=== PATIENT | female | born 1980 | race Caucasian/White ===

== ENCOUNTER 2016-12-06 19:30 | Emergency (ER) | payer OTHER ==
[~2016-12-06] VITALS: Ht 165.1 cm; Wt 86.7 kg
[~2016-12-06 19:30] MED LIST: ASPI-157 PO; CLON1TAB PO; PERC7.5T13 PO; PROM25TA5 PO; VENTAER INH
[2016-12-06 19:44] VITALS: BP 114/79; PULSE 89; RESP 18; TEMP 98.7; O2SAT 97
[2016-12-06 19:57] VITALS: BP 114/79; PULSE 89; RESP 18; TEMP 98.7; O2SAT 97
[2016-12-06] MEDS ORDERED: SODIUM CHLOR 0.9% 1000 ML INJ 1,000 ML IV ONE (20:09)
[2016-12-06] MEDS ORDERED: METOCLOPRAMIDE HCL 10 MG/2 ML VIAL IVP ONE (20:15)
[2016-12-06] MEDS ORDERED: SODIUM CHLORIDE 0.9% FLUSH 5 ML FLUSH IVF PRN (20:15)
[2016-12-06] MEDS ORDERED: diphenhydrAMINE HCL 50 MG/ML VIAL IVP ONE (20:15)
[2016-12-06 20:38] VITALS: RESP 18; O2SAT 97
[2016-12-06 21:06] VITALS: BP 109/68; PULSE 71; RESP 18; O2SAT 97
--- NOTE | 2016-12-06 21:23 | RADHPO ---
EXAM DATE/TIME: 12/06/2016 20:49 [place] COMPARISON: CT BRAIN W/O CONTRAST, November 26, 2016, 23:02. INDICATIONS : Headache and photophobia for two days. RADIATION DOSE: 63.13 CTDIvol (mGy) MEDICAL HISTORY : None SURGICAL HISTORY : Hysterectomy. ENCOUNTER: Initial ACUITY: 2 days PAIN SCALE: 8/10 LOCATION: cranial TECHNIQUE: Multiple contiguous axial images were obtained of the head. Using automated exposure control and adj ustment of the mA and/or kV according to patient size, radiation dose was kept as low as reasonably a chievable to obtain optimal diagnostic quality images. FINDINGS: CEREBRUM: The ventricles are normal for age. Cavum septum pellucidum is again noted. No evidence of midline sh ift, mass lesion, hemorrhage or acute infarction. No extra-axial fluid collections are seen. POSTERIOR FOSSA: The cerebellum and brainstem are intact. The 4th ventricle is midline. The cerebellopontine angle i s unremarkable. EXTRACRANIAL: The visualized portion of the orbits is intact. SKULL: The calvaria is intact. No evidence of skull fracture. CONCLUSION: No acute disease. Harshal Ly MD on December 06, 2016 at 21:21 Board Certified Radiologist. This report was verified electronically.
[2016-12-06] MEDS ORDERED: PROMETHAZINE INJ 25 MG/ML VIAL IM ONE (21:30)
[2016-12-06] MEDS ORDERED: LORazepam 2 MG/ML VIAL IV PUSH ONE (21:30)
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
[2016-12-06 22:10] VITALS: BP 103/64
== END 2016-12-06 22:18 | disposition home or self-care (01) ==
LOC: PHED 19:30
DX: S09.90XA Unspecified injury of head, initial encounter (principal); F17.210 Nicotine dependence, cigarettes, uncomplicated; W21.12XA Struck by tennis racquet, initial encounter; Y93.69 Activity, other involving other sports and athletics played as a team or group; Y92.9 Unspecified place or not applicable; Y99.9 Unspecified external cause status
CPT/HCPCS: 70450; 96361; 96372; 96374; 96375; 99283; J1200; J2060; J2550; J2765; J7030

== ENCOUNTER 2017-01-06 21:13 | Emergency (ER) | payer OTHER ==
[~2017-01-06] VITALS: Ht 165.1 cm; Wt 84.1 kg
[~2017-01-06 21:13] MED LIST changes: -PROM25TA5 PO
[2017-01-06 21:18] VITALS: BP 109/78; PULSE 97; RESP 18; TEMP 99.3; O2SAT 97
[2017-01-06] MEDS ORDERED: SODIUM CHLOR 0.9% 1000 ML INJ 1,000 ML IV SCH (21:26)
[2017-01-06] MEDS ORDERED: SODIUM CHLORIDE 0.9% FLUSH 5 ML FLUSH IVF PRN (21:30)
[2017-01-06] MEDS ORDERED: MORPHINE SULFATE 4 MG/ML INJ IV PUSH ONE (21:30)
[2017-01-06] MEDS ORDERED: METOCLOPRAMIDE HCL 10 MG/2 ML VIAL IV PUSH ONE (21:30)
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
[2017-01-06] MEDS ORDERED: MORPHINE SULFATE 8 MG/ML INJ IV PUSH ONE (22:45)
[2017-01-06] MEDS ORDERED: PROMETHAZINE INJ 25 MG/ML VIAL IM ONE (22:45)
[2017-01-06] MEDS ORDERED: SODIUM CHLOR 0.9% 1000 ML INJ 1,000 ML IV ONE (22:45)
[2017-01-06] MEDS ORDERED: ONDANSETRON HCL 4 MG/2 ML VIAL IV PUSH ONE (22:45)
[2017-01-06 23:49] VITALS: BP 147/78
== END 2017-01-06 23:51 | disposition home or self-care (01) ==
LOC: PHED 21:13
DX: G43.909 Migraine, unspecified, not intractable, without status migrainosus (principal); M19.90 Unspecified osteoarthritis, unspecified site; J45.909 Unspecified asthma, uncomplicated; F41.8 Other specified anxiety disorders; F17.210 Nicotine dependence, cigarettes, uncomplicated
CPT/HCPCS: 96361; 96372; 96374; 96375; 99283; J2270; J2405; J2550; J7030

== ENCOUNTER 2017-01-24 20:12 | Emergency (ER) | payer OTHER ==
[~2017-01-24] VITALS: Ht 165.1 cm; Wt 86.0 kg
[2017-01-24 20:15] VITALS: BP 134/88; PULSE 91; RESP 20; TEMP 99.1; O2SAT 98
[2017-01-24] MEDS ORDERED: PROM25TA5 PO (20:34)
[2017-01-24] MEDS ORDERED: diphenhydrAMINE HCL 50 MG/ML VIAL IM SCH (20:45)
[2017-01-24] MEDS ORDERED: HALOPERIDOL LACTATE 5 MG/ML AMP IM ONE (20:45)
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
[2017-01-24] MEDS ORDERED: LORazepam 2 MG/ML VIAL IM ONE (21:45)
[2017-01-24 22:47] VITALS: BP 107/63
== END 2017-01-24 22:54 | disposition home or self-care (01) ==
LOC: PHED 20:12
DX: G43.901 Migraine, unspecified, not intractable, with status migrainosus (principal)
CPT/HCPCS: 96372; 99283; J1200; J1630; J2060

== ENCOUNTER 2017-02-17 19:47 | Emergency (ER) | payer OTHER ==
[~2017-02-17] VITALS: Ht 165.1 cm; Wt 86.2 kg
[~2017-02-17 19:47] MED LIST changes: -ASPI-157 PO; +PROM25TA5 PO
[2017-02-17 20:23] VITALS: BP 113/76; PULSE 89; RESP 18; TEMP 99; O2SAT 89
[2017-02-17 22:56] VITALS: BP 113/76; PULSE 89; RESP 18; TEMP 99; O2SAT 99
[2017-02-17] MEDS ORDERED: ONDANSETRON HCL 4 MG/2 ML VIAL IV PUSH ONE (23:00)
[2017-02-17] MEDS ORDERED: SODIUM CHLOR 0.9% 1000 ML INJ 1,000 ML IV ONE (23:00)
[2017-02-17] MEDS ORDERED: diphenhydrAMINE HCL 50 MG/ML VIAL IV PUSH ONE (23:00)
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
[2017-02-18 00:02] VITALS: BP 107/64; PULSE 81; RESP 18; O2SAT 99
[2017-02-18] MEDS ORDERED: METOCLOPRAMIDE HCL 10 MG/2 ML VIAL IV PUSH ONE (00:30)
[2017-02-18 00:58] VITALS: BP 108/62; PULSE 79; RESP 18; O2SAT 98
[2017-02-18] MEDS ORDERED: MORPHINE SULFATE 4 MG/ML INJ IV PUSH ONE (01:00)
[2017-02-18] MEDS ORDERED: PROM25TA5 PO (01:02)
[2017-02-18] MEDS ORDERED: BACT800T5 PO (01:02)
[2017-02-18 02:24] VITALS: BP 98/52; PULSE 75; RESP 18; O2SAT 96
== END 2017-02-18 02:43 | disposition home or self-care (01) ==
LOC: PHED 19:47
DX: R51 Headache (principal); L02.415 Cutaneous abscess of right lower limb; R11.2 Nausea with vomiting, unspecified; J45.909 Unspecified asthma, uncomplicated; F17.210 Nicotine dependence, cigarettes, uncomplicated
CPT/HCPCS: 96361; 96374; 96375; 99283; J1200; J2270; J2405; J2765; J7030

== ENCOUNTER 2017-03-04 21:23 | Emergency (ER) | payer OTHER ==
[~2017-03-04] VITALS: Ht 165.1 cm; Wt 83.7 kg
[~2017-03-04 21:23] MED LIST changes: +BACT800T5 PO
[2017-03-04 21:43] VITALS: BP 115/85; PULSE 84; RESP 18; TEMP 99.1; O2SAT 97
[2017-03-04 23:05] VITALS: BP 111/70; PULSE 79; RESP 18; TEMP 97.6; O2SAT 99
[2017-03-04] MEDS ORDERED: SODIUM CHLOR 0.9% 1000 ML INJ 1,000 ML IV ONE (23:15)
[2017-03-04] MEDS ORDERED: diphenhydrAMINE HCL 50 MG/ML VIAL IV PUSH ONE (23:15)
[2017-03-04] MEDS ORDERED: ONDANSETRON HCL 4 MG/2 ML VIAL IV PUSH ONE (23:15)
[2017-03-04] MEDS ORDERED: METOCLOPRAMIDE HCL 10 MG/2 ML VIAL IV PUSH ONE (23:15)
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
[2017-03-05 00:05] VITALS: BP 122/81; PULSE 68; RESP 18; O2SAT 99
[2017-03-05] MEDS ORDERED: diphenhydrAMINE HCL 50 MG/ML VIAL IV PUSH ONE (00:15)
[2017-03-05 00:40] VITALS: BP 109/68; PULSE 68; RESP 18; O2SAT 99
[2017-03-05] MEDS ORDERED: ZOFR4TAB3 SL (00:40)
[2017-03-05] MEDS ORDERED: LORazepam 0.5 MG TAB PO ONE (00:45)
== END 2017-03-05 01:07 | disposition home or self-care (01) ==
LOC: PHED 21:23
DX: R11.2 Nausea with vomiting, unspecified (principal); F17.200 Nicotine dependence, unspecified, uncomplicated; Z86.69 Personal history of other diseases of the nervous system and sense organs; Z87.39 Personal history of other diseases of the musculoskeletal system and connective tissue; Z87.09 Personal history of other diseases of the respiratory system; Z86.59 Personal history of other mental and behavioral disorders; Z85.41 Personal history of malignant neoplasm of cervix uteri; Z87.19 Personal history of other diseases of the digestive system; Z87.448 Personal history of other diseases of urinary system
CPT/HCPCS: 96361; 96374; 96375; 99283; J1200; J2405; J2765; J7030

== ENCOUNTER 2017-04-09 21:06 | Emergency (ER) | payer OTHER ==
[~2017-04-09] VITALS: Ht 165.1 cm; Wt 82.6 kg
[~2017-04-09 21:06] MED LIST changes: -BACT800T5 PO; +ZOFR4TAB3 SL
[2017-04-09 21:16] VITALS: BP 120/74; PULSE 82; RESP 16; TEMP 98.4; O2SAT 98
[2017-04-09 21:42] VITALS: BP 120/74; PULSE 82; RESP 18; TEMP 98.4; O2SAT 98
[2017-04-09] MEDS ORDERED: diphenhydrAMINE HCL 50 MG/ML VIAL IV PUSH ONE (22:30)
[2017-04-09] MEDS ORDERED: SODIUM CHLOR 0.9% 1000 ML INJ 1,000 ML IV ONE (22:30)
[2017-04-09] MEDS ORDERED: ONDANSETRON HCL 4 MG/2 ML VIAL IV PUSH ONE (22:30)
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
[2017-04-10] MEDS ORDERED: METOCLOPRAMIDE HCL 10 MG/2 ML VIAL IV PUSH ONE
[2017-04-10] MEDS ORDERED: diphenhydrAMINE HCL 50 MG/ML VIAL IV PUSH ONE
[2017-04-10 00:14] VITALS: BP 96/61; PULSE 77; RESP 18; O2SAT 98
[2017-04-10] MEDS ORDERED: ZOFR4TAB3 SL (02:01)
[2017-04-10 02:25] VITALS: BP 114/64; PULSE 74; RESP 18; O2SAT 98
== END 2017-04-10 02:41 | disposition home or self-care (01) ==
LOC: PHED 21:06
DX: R51 Headache (principal); R11.2 Nausea with vomiting, unspecified; F17.200 Nicotine dependence, unspecified, uncomplicated; Z87.39 Personal history of other diseases of the musculoskeletal system and connective tissue; Z87.09 Personal history of other diseases of the respiratory system; Z86.59 Personal history of other mental and behavioral disorders; Z85.41 Personal history of malignant neoplasm of cervix uteri; Z87.19 Personal history of other diseases of the digestive system; Z87.442 Personal history of urinary calculi; Z86.69 Personal history of other diseases of the nervous system and sense organs
CPT/HCPCS: 96361; 96374; 96375; 96376; 99283; J1200; J2405; J2765; J7030

== ENCOUNTER 2017-04-29 20:52 | Emergency (ER) | payer OTHER ==
[~2017-04-29] VITALS: Ht 165.1 cm; Wt 81.5 kg
[2017-04-29 20:55] VITALS: BP 113/76; PULSE 89; RESP 18; TEMP 98; O2SAT 100
[2017-04-29] MEDS ORDERED: PROM25TA10 PO (21:03)
[2017-04-29] MEDS ORDERED: SODIUM CHLOR 0.9% 1000 ML INJ 1,000 ML IV ONE (21:39)
[2017-04-29] MEDS ORDERED: ONDANSETRON HCL 4 MG/2 ML VIAL IVP ONE (21:45)
[2017-04-29] MEDS ORDERED: SODIUM CHLORIDE 0.9% FLUSH 10 ML FLUSH IVF PRN (21:45)
[2017-04-29] MEDS ORDERED: diphenhydrAMINE HCL 50 MG/ML VIAL IVP ONE (21:45)
[2017-04-29] MEDS ORDERED: METOCLOPRAMIDE HCL 10 MG/2 ML VIAL IVP ONE (21:45)
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
[2017-04-29 22:10] LABS: AUTOMATED NEUTROPHIL # 6.5 TH/MM3 (1.8-7.7); BASOPHIL # 0.3 TH/MM3 (0-0.2); BASOPHIL % 2.4 % (0.0-2.0); EOSINOPHIL # 0.4 TH/MM3 (0-0.4); EOSINOPHIL % 3.9 % (0.0-4.0); HEMATOCRIT 40.9 % (35.0-46.0); LYMPH % 27.7 % (9.0-44.0); MEAN CELL VOLUME 90.8 FL (80.0-100.0); MEAN CORPUSCULAR HEMOGLOBIN 30.1 PG (27.0-34.0); MEAN CORPUSCULAR HGB CONC 33.2 % (32.0-36.0); MONO % 5.8 % (0.0-8.0); NEUT % 60.2 % (16.0-70.0); PLATELET COUNT 245 TH/MM3 (150-450); RED CELL DISTRIBUTION WIDTH 13.8 % (11.6-17.2); WHITE BLOOD COUNT 10.8 TH/MM3 (4.0-11.0)
[2017-04-29 22:17] LABS: HEMO FLAGS DIFF FINAL
[2017-04-29 22:18] LABS: POTASSIUM 3.8 MEQ/L (3.5-5.1)
[2017-04-29 22:21] LABS: BICARBONATE 26.2 MEQ/L (21.0-32.0)
[2017-04-29] MEDS ORDERED: diphenhydrAMINE HCL 50 MG/ML VIAL IV PUSH ONE (22:30)
[2017-04-29] MEDS ORDERED: MORPHINE SULFATE 4 MG/ML INJ IV PUSH ONE (22:30)
[2017-04-29 23:42] VITALS: BP 142/72
== END 2017-04-29 23:44 | disposition home or self-care (01) ==
LOC: PHED 20:52
DX: G43.909 Migraine, unspecified, not intractable, without status migrainosus (principal); F17.200 Nicotine dependence, unspecified, uncomplicated
CPT/HCPCS: 80048; 85025; 96361; 96374; 96375; 96376; 99284; J1200; J2270; J2405; J2765; J7030

== ENCOUNTER 2017-05-27 21:02 | Emergency (ER) | payer OTHER ==
[~2017-05-27] VITALS: Ht 165.1 cm; Wt 82.8 kg
[~2017-05-27 21:02] MED LIST changes: -CLON1TAB PO; +PROM25TA10 PO; -PROM25TA5 PO; -ZOFR4TAB3 SL
[2017-05-27 21:07] VITALS: BP 147/119; PULSE 111; RESP 20; TEMP 98.7; O2SAT 95
[2017-05-27] MEDS ORDERED: SODIUM CHLOR 0.9% 1000 ML INJ 1,000 ML IV ONE (21:31)
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
[2017-05-27 21:40] VITALS: BP 147/119; PULSE 111; RESP 20; O2SAT 95
[2017-05-27] MEDS ORDERED: diphenhydrAMINE HCL 50 MG/ML VIAL IVP ONE (21:45)
[2017-05-27] MEDS ORDERED: METOCLOPRAMIDE HCL 10 MG/2 ML VIAL IVP ONE (21:45)
[2017-05-27] MEDS ORDERED: SODIUM CHLORIDE 0.9% FLUSH 10 ML FLUSH IVF PRN (21:45)
[2017-05-27] MEDS ORDERED: MORPHINE SULFATE 8 MG/ML INJ IV PUSH ONE (21:45)
[2017-05-27 21:50] VITALS: BP 112/69; PULSE 76; RESP 20; O2SAT 96
[2017-05-27] MEDS ORDERED: ONDANSETRON HCL 4 MG/2 ML VIAL IV ONE (22:30)
[2017-05-27] MEDS ORDERED: SODIUM CHLOR 0.9% 1000 ML INJ 1,000 ML IV SCH (22:30)
[2017-05-27] MEDS ORDERED: PROM25TA10 PO (22:57)
[2017-05-27 22:59] VITALS: BP 105/65; PULSE 75; RESP 16; O2SAT 97
== END 2017-05-27 23:33 | disposition home or self-care (01) ==
LOC: PHED 21:02
DX: G43.909 Migraine, unspecified, not intractable, without status migrainosus (principal); M19.90 Unspecified osteoarthritis, unspecified site; Z85.41 Personal history of malignant neoplasm of cervix uteri
CPT/HCPCS: 96361; 96374; 96375; 99284; J1200; J2270; J2405; J2765; J7030

== ENCOUNTER 2017-06-15 17:32 | Emergency (ER) | payer OTHER ==
[~2017-06-15] VITALS: Ht 167.6 cm; Wt 81.6 kg
[2017-06-15 17:40] VITALS: BP 140/98; PULSE 118; RESP 16; TEMP 98.2; O2SAT 99
[2017-06-15] MEDS ORDERED: SODIUM CHLOR 0.9% 1000 ML INJ 1,000 ML IV ONE (18:16)
[2017-06-15] MEDS ORDERED: CLON1 PO (18:18)
[2017-06-15] MEDS ORDERED: SODIUM CHLORIDE 0.9% FLUSH 10 ML FLUSH IVF PRN (18:30)
[2017-06-15] MEDS ORDERED: ACETAMINOPHEN 325 MG TAB PO ONE (18:30)
[2017-06-15] MEDS ORDERED: diphenhydrAMINE HCL 50 MG/ML VIAL IVP ONE (18:30)
[2017-06-15] MEDS ORDERED: METOCLOPRAMIDE HCL 10 MG/2 ML VIAL IVP ONE ×2 (18:30)
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
[2017-06-15 19:00] VITALS: BP 103/60; PULSE 83; RESP 16; O2SAT 97
[2017-06-15] MEDS ORDERED: MORPHINE SULFATE 8 MG/ML INJ IV PUSH ONE (19:00)
[2017-06-15 19:36] VITALS: RESP 16
[2017-06-15 19:51] VITALS: BP 109/71
== END 2017-06-15 20:00 | disposition home or self-care (01) ==
LOC: PHED 17:32
DX: R51 Headache (principal); F17.210 Nicotine dependence, cigarettes, uncomplicated
CPT/HCPCS: 96361; 96374; 96375; 99284; J1200; J2270; J2765; J7030

== ENCOUNTER 2017-07-15 18:50 | Emergency (ER) | payer OTHER ==
[~2017-07-15] VITALS: Ht 165.1 cm; Wt 82.7 kg
[~2017-07-15 18:50] MED LIST changes: +CLON1 PO
[2017-07-15 18:53] VITALS: BP 153/90; PULSE 96; RESP 16; TEMP 98.4; O2SAT 96
[2017-07-15] MEDS ORDERED: SODIUM CHLOR 0.9% 1000 ML INJ 1,000 ML IV ONE (21:30)
[2017-07-15] MEDS ORDERED: diphenhydrAMINE HCL 50 MG/ML VIAL IV PUSH ONE (21:30)
[2017-07-15] MEDS ORDERED: METOCLOPRAMIDE HCL 10 MG/2 ML VIAL IV PUSH ONE (21:30)
[2017-07-15] MEDS ORDERED: MORPHINE SULFATE 8 MG/ML INJ IV PUSH ONE (21:30)
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
[2017-07-15 21:43] VITALS: PULSE 74; RESP 16; O2SAT 99
[2017-07-15 22:19] VITALS: BP 140/82
== END 2017-07-15 22:22 | disposition home or self-care (01) ==
LOC: PHED 18:50
DX: G43.009 Migraine without aura, not intractable, without status migrainosus (principal); F17.200 Nicotine dependence, unspecified, uncomplicated
CPT/HCPCS: 96374; 96375; 99284; J1200; J2270; J2765; J7030

== ENCOUNTER 2017-10-14 20:43 | Emergency (ER) | payer OTHER ==
[~2017-10-14] VITALS: Ht 165.1 cm; Wt 83.9 kg
[2017-10-14 20:49] VITALS: BP 109/83; PULSE 118; RESP 16; TEMP 98.5; O2SAT 98
[2017-10-14] MEDS ORDERED: METOCLOPRAMIDE HCL 10 MG/2 ML VIAL IV PUSH ONE (21:30)
[2017-10-14] MEDS ORDERED: SODIUM CHLOR 0.9% 1000 ML INJ 1,000 ML IV ONE (21:30)
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
[2017-10-14] MEDS ORDERED: MORPHINE SULFATE 8 MG/ML INJ IV PUSH ONE (21:45)
[2017-10-14] MEDS ORDERED: diphenhydrAMINE HCL 50 MG/ML VIAL IV PUSH ONE (21:45)
[2017-10-14 22:28] VITALS: BP 108/60; PULSE 89; RESP 16; O2SAT 99
[2017-10-14] MEDS ORDERED: BACT800T5 PO (23:46)
[2017-10-15 00:06] VITALS: BP 118/77; PULSE 85; RESP 16; O2SAT 100
== END 2017-10-15 00:18 | disposition home or self-care (01) ==
LOC: PHED 20:43
DX: G43.909 Migraine, unspecified, not intractable, without status migrainosus (principal); L02.415 Cutaneous abscess of right lower limb; L03.115 Cellulitis of right lower limb; D64.9 Anemia, unspecified; J45.909 Unspecified asthma, uncomplicated; M19.90 Unspecified osteoarthritis, unspecified site; Z72.0 Tobacco use
CPT/HCPCS: 96361; 96374; 96375; 99284; J1200; J2270; J2765; J7030

== ENCOUNTER 2017-11-23 21:06 | Emergency (ER) | payer OTHER, MEDICAID ==
[~2017-11-23] VITALS: Ht 165.1 cm; Wt 81.7 kg
[~2017-11-23 21:06] MED LIST changes: +BACT800T5 PO
[2017-11-23 21:08] VITALS: BP 149/74; PULSE 110; RESP 18; TEMP 98; O2SAT 97
[2017-11-23] MEDS ORDERED: LORazepam 2 MG/ML VIAL IV PUSH ONE (22:00)
[2017-11-23] MEDS ORDERED: SODIUM CHLOR 0.9% 1000 ML INJ 1,000 ML IV ONE (22:00)
[2017-11-23] MEDS ORDERED: HALOPERIDOL LACTATE 5 MG/ML AMP IV ONE (22:00)
[2017-11-23] MEDS ORDERED: diphenhydrAMINE HCL 50 MG/ML VIAL IV PUSH ONE (22:00)
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
[2017-11-23 22:24] VITALS: PULSE 75; RESP 16; O2SAT 98
[2017-11-23] MEDS ORDERED: MORPHINE SULFATE 2 MG/ML INJ IV PUSH ONE (23:00)
[2017-11-23] MEDS ORDERED: DEXAMETHASONE SOD PHOS 20 MG/5 ML VIAL IV PUSH ONE (23:15)
[2017-11-23] MEDS ORDERED: BENZTROPINE MESYLATE 2 MG/2 ML VIAL IV PUSH ONE (23:15)
[2017-11-23] MEDS ORDERED: BENZTROPINE MESYLATE 2 MG/2 ML VIAL IM ONE (23:15)
[2017-11-23 23:18] VITALS: BP 114/67; PULSE 88; RESP 18; O2SAT 99
== END 2017-11-23 23:32 | disposition home or self-care (01) ==
LOC: PHED 21:06
DX: G43.909 Migraine, unspecified, not intractable, without status migrainosus (principal); R11.2 Nausea with vomiting, unspecified; M19.90 Unspecified osteoarthritis, unspecified site; J45.909 Unspecified asthma, uncomplicated; F41.9 Anxiety disorder, unspecified; F32.9 Major depressive disorder, single episode, unspecified; K21.9 Gastro-esophageal reflux disease without esophagitis; F17.200 Nicotine dependence, unspecified, uncomplicated; Z79.899 Other long term (current) drug therapy
CPT/HCPCS: 80307; 96361; 96374; 96375; 99284; J0515; J1100; J1200; J1630; J2060; J2270; J7030

== ENCOUNTER 2017-12-29 20:56 | Emergency (ER) | payer MEDICAID, OTHER ==
[~2017-12-29 20:56] MED LIST changes: -BACT800T5 PO
[2017-12-29 21:05] VITALS: BP_SYST 144; BP_DIAS 0; BP_DIAS 70; PULSE 90; RESP 20; TEMP 98.1; O2SAT 98
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
[2017-12-29] MEDS ORDERED: SODIUM CHLOR 0.9% 1000 ML INJ 1,000 ML IV ONE (22:00)
[2017-12-29] MEDS ORDERED: METOCLOPRAMIDE INJ 10 MG in SODIUM CHLORIDE 0.9% INJ 50 ML IV ONE (22:00)
[2017-12-29] MEDS ORDERED: diphenhydrAMINE HCL 50 MG/ML VIAL IV PUSH ONE (22:00)
[2017-12-29] MEDS ORDERED: METOCLOPRAMIDE HCL 10 MG/2 ML VIAL IV SCH (22:15)
[2017-12-29] MEDS ORDERED: MORPHINE SULFATE 2 MG/ML INJ IV PUSH ONE (23:00)
[2017-12-29 23:50] VITALS: RESP 15
[2017-12-29 23:51] VITALS: BP 136/70
== END 2017-12-30 00:04 | disposition home or self-care (01) ==
LOC: PHED 20:56
DX: G43.109 Migraine with aura, not intractable, without status migrainosus (principal); J45.909 Unspecified asthma, uncomplicated; F17.200 Nicotine dependence, unspecified, uncomplicated
CPT/HCPCS: 96361; 96374; 96375; 99284; J1200; J2270; J2765; J7030

== ENCOUNTER 2018-01-16 21:36 | Emergency (ER) | payer OTHER ==
[~2018-01-16] VITALS: Ht 165.1 cm; Wt 82.6 kg
[2018-01-16 21:57] VITALS: BP 137/79; PULSE 98; RESP 20; TEMP 98.2; O2SAT 98
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
[2018-01-16] MEDS ORDERED: SODIUM CHLOR 0.9% 1000 ML INJ 1,000 ML IV ONE (22:21)
[2018-01-16] MEDS ORDERED: SODIUM CHLORIDE 0.9% FLUSH 10 ML FLUSH IVF PRN (22:30)
[2018-01-16] MEDS ORDERED: METOCLOPRAMIDE HCL 10 MG/2 ML VIAL IVP ONE (22:30)
[2018-01-16 22:53] LABS: BASOPHIL # 0.1 TH/MM3 (0-0.2); BASOPHIL % 0.9 % (0.0-2.0); EOSINOPHIL # 0.6 TH/MM3 (0-0.4); EOSINOPHIL % 6.6 % (0.0-4.0); HEMATOCRIT 41.6 % (35.0-46.0); HEMOGLOBIN 14.4 GM/DL (11.6-15.3); LYMPH % 36.6 % (9.0-44.0); LYMPHOCYTE # 3.5 TH/MM3 (1.0-4.8); MEAN CELL VOLUME 90.4 FL (80.0-100.0); MEAN CORPUSCULAR HEMOGLOBIN 31.4 PG (27.0-34.0); MEAN CORPUSCULAR HGB CONC 34.8 % (32.0-36.0); MEAN PLATELET VOLUME 8.6 FL (7.0-11.0); MONO % 3.9 % (0.0-8.0); MONOCYTE # 0.4 TH/MM3 (0-0.9); PLATELET COUNT 271 TH/MM3 (150-450); RED CELL DISTRIBUTION WIDTH 14.2 % (11.6-17.2); WHITE BLOOD COUNT 9.6 TH/MM3 (4.0-11.0)
[2018-01-16 23:09] LABS: CALCIUM 8.3 MG/DL (8.5-10.1)
[2018-01-16 23:10] LABS: BICARBONATE 25.4 MEQ/L (21.0-32.0)
[2018-01-16 23:13] LABS: CREATININE 0.66 MG/DL (0.50-1.00)
[2018-01-16] MEDS ORDERED: MORPHINE SULFATE 2 MG/ML INJ IV PUSH ONE (23:45)
[2018-01-16] MEDS ORDERED: diphenhydrAMINE HCL 50 MG/ML VIAL IVP ONE (23:45)
[2018-01-16 23:54] VITALS: RESP 18; O2SAT 97
--- NOTE | 2018-01-17 00:48 | PD ---
Physical Exam Time Seen by Provider: 00:[address] Cox left this patient with me to see if her headache got better on the Reglan that Dr. Cox gave her. Data Data Last Documented VS Vital Signs Date Time Temp Pulse Resp B/P (MAP) Pulse Ox O2 Delivery O2 Flow Rate FiO2 01/16/18 23:54 18 97 Room Air 01/16/18 21:57 98.2 98 137/79 (98) Orders Orders Complete Blood Count With Diff (01/16/18 22:21) Basic Metabolic Panel (Bmp) (01/16/18 22:21) Ecg Monitoring (01/16/18 22:21) Iv Access Insert/Monitor (01/16/18 22:21) Oximetry (01/16/18 22:21) Sodium Chloride 0.9% Flush (Ns Flush) (01/16/18 22:30) Metoclopramide Inj (Reglan Inj) (01/16/18 22:30) Sodium Chlor 0.9% 1000 Ml Inj (Ns 1000 M (01/16/18 22:21) Diphenhydramine Inj (Benadryl Inj) (01/16/18 23:45) Morphine Inj (Morphine Inj) (01/16/18 23:45) Labs Laboratory Tests Test 01/16/18 22:40 White Blood Count 9.6 TH/MM3 Red Blood Count 4.60 MIL/MM3 Hemoglobin 14.4 GM/DL Hematocrit 41.6 % Mean Corpuscular Volume 90.4 FL Mean Corpuscular Hemoglobin 31.4 PG Mean Corpuscular Hemoglobin Concent 34.8 % Red Cell Distribution Width 14.2 % Platelet Count 271 TH/MM3 Mean Platelet Volume 8.6 FL Neutrophils (%) (Auto) 52.0 % Lymphocytes (%) (Auto) 36.6 % Monocytes (%) (Auto) 3.9 % Eosinophils (%) (Auto) 6.6 % Basophils (%) (Auto) 0.9 % Neutrophils # (Auto) 5.0 TH/MM3 Lymphocytes # (Auto) 3.5 TH/MM3 Monocytes # (Auto) 0.4 TH/MM3 Eosinophils # (Auto) 0.6 TH/MM3 Basophils # (Auto) 0.1 TH/MM3 CBC Comment AUTO DIFF Differential Comment AUTO DIFF CONFIRMED Platelet Estimate NORMAL Platelet Morphology Comment CLUMPED Red Cell Morphology Comment NORMAL Blood Urea Nitrogen 13 MG/DL Creatinine 0.66 MG/DL Random Glucose 90 MG/DL Calcium Level 8.3 MG/DL Sodium Level 140 MEQ/L Potassium Level 3.5 MEQ/L Chloride Level 108 MEQ/L Carbon Dioxide Level 25.4 MEQ/L Anion Gap 7 MEQ/L Estimat Glomerular Filtration Rate 100 ML/MIN MDM Medical Record Reviewed: Yes Supervised Visit with KENIA: No Differential Diagnosis Migraine headache, cluster headache, tension headache, tension/migraine headache , intracranial bleed-highly unlikely Narrative Course Dr. Cox gave the patient Reglan that she did not have any change in her headache. I gave the patient Benadryl and 4 mg of morphine and the patient's headache is now resolved. It is now 004 7 in the morning and she wants to go home. She states that she will follow up with her neurologist. Diagnosis Primary Impression: Migraine headache Additional Instruction: As we discussed, follow-up with your neurologist as soon as possible. Disposition: 01 DISCHARGE HOME Condition: Stable Richard Jaffe MD Jan 17, 2018 00:48
== END 2018-01-17 01:24 | disposition home or self-care (01) ==
LOC: PHED 21:36
DX: G43.909 Migraine, unspecified, not intractable, without status migrainosus (principal); D64.9 Anemia, unspecified; M19.90 Unspecified osteoarthritis, unspecified site; J45.909 Unspecified asthma, uncomplicated; F41.9 Anxiety disorder, unspecified; F32.9 Major depressive disorder, single episode, unspecified; K21.9 Gastro-esophageal reflux disease without esophagitis; F17.200 Nicotine dependence, unspecified, uncomplicated; Z87.442 Personal history of urinary calculi
CPT/HCPCS: 80048; 85025; 96361; 96374; 96375; 99284; J1200; J2270; J2765; J7030

== ENCOUNTER 2018-02-25 22:23 | Emergency (ER) | payer OTHER, MEDICAID ==
[~2018-02-25] VITALS: Ht 165.1 cm; Wt 80.1 kg
[2018-02-25 22:27] VITALS: BP 145/81; PULSE 93; RESP 16; TEMP 97.9; O2SAT 97
[2018-02-25] MEDS ORDERED: SODIUM CHLOR 0.9% 1000 ML INJ 1,000 ML IV ONE (22:38)
--- NOTE | 2018-02-25 22:42 | PD ---
HPI Chief Complaint: Headache Time Seen by Provider: 22:32 Travel History International Travel<30 days: No Contact w/Intl Traveler<30days: No Traveled to known affect area: No History of Present Illness HPI Is a 37-year-old woman who presents to the emergency department complaining of migraine headache. She is a history of frequent migraine headaches. States his headache is similar to all her previous headaches. No new or concerning symptoms associated with it. She does get some visual changes. No fevers. No recent illness or injury. She did recently have surgery on her right knee. History Past Medical History Narrative Medical Migraines Anxiety Menopausal: No : 1 Para: 1 Dilation and Curettage (D&C): Yes (WITH ABLATION 11/2013) Social History Alcohol Use: Yes (OCC) Tobacco Use: Yes (1 PPD) Allergies-Medications (Allergen,Severity, Reaction): Coded Allergies: hydromorphone (Verified Allergy, Severe, Itching, 02/25/18) ibuprofen (Verified Allergy, Severe, Nausea/Vomiting, 02/25/18) ketorolac (Verified Allergy, Severe, Headache, 02/25/18) pregabalin (Verified Allergy, Severe, Dizziness, 02/25/18) tramadol (Verified Allergy, Severe, Headache, 02/25/18) acetaminophen (Verified Allergy, Intermediate, Headache, 02/25/18) pt states does not have a allergy to acetaminophen butalbital (Verified Allergy, Intermediate, Headache, 02/25/18) caffeine (Verified Allergy, Intermediate, Headache, 02/25/18) pt states does not have a allergy to caffeine sumatriptan (Verified Allergy, Unknown, Itching, 02/25/18) varenicline (Verified Adverse Reaction, Severe, Dizziness, 02/25/18) NAUSEA/VOMITING prochlorperazine (Verified Adverse Reaction, Mild, PANIC ATTACK, 02/25/18) Uncoded Allergies: CONTROL PILLS (Allergy, Severe, Nausea/Vomiting, 07/15/17) . Reported Meds & Prescriptions Reported Meds & Active Scripts Active Reported Klonopin (Clonazepam) 1 Mg Tab 1 Mg PO HS Phenergan (Promethazine HCl) 25 Mg Tablet 25 Mg PO Q6H PRN Percocet (Oxycodone-Acetaminophen) 7.5-325 mg Tab 1 Tab PO Q6H PRN Ventolin Hfa 18 GM Inh (Albuterol Sulfate) 90 Mcg/Act Aer 2 Puff INH Q4H PRN Review of Systems Except as stated in HPI: all other systems reviewed are Neg Physical Exam Narrative GENERAL: Well-appearing 29-year-old woman, laying in bed with with her fluid over her head hiding from the light. SKIN: Warm and dry. NECK: No meningismus. CARDIOVASCULAR: Warm and well perfused. RESPIRATORY: Normal rate and effort. MUSCULOSKELETAL: No deformities. NEUROLOGICAL: Awake and alert. No gross deficits. Normal speech. Normal mental status. Data Data Last Documented VS Vital Signs Date Time Temp Pulse Resp B/P (MAP) Pulse Ox O2 Delivery O2 Flow Rate FiO2 02/25/18 23:09 98 Room Air 02/25/18 22:27 97.9 93 16 145/81 (102) Orders Orders Ecg Monitoring (02/25/18 22:38) Iv Access Insert/Monitor (02/25/18 22:38) Oximetry (02/25/18 22:38) Sodium Chloride 0.9% Flush (Ns Flush) (02/25/18 22:45) Diphenhydramine Inj (Benadryl Inj) (02/25/18 22:45) Metoclopramide Inj (Reglan Inj) (02/25/18 22:45) Sodium Chlor 0.9% 1000 Ml Inj (Ns 1000 M (02/25/18 22:38) Dexamethasone Inj (Decadron Inj) (02/25/18 22:45) Morphine Inj (Morphine Inj) (02/25/18 23:45) MDM Medical Decision Making Medical Screen Exam Complete: Yes Emergency Medical Condition: Yes Differential Diagnosis Migraine, headache, adverse reaction to medication, other Narrative Course Medical decision-making 29-year-old woman here with her typical migraine. Multiple stated allergies. Responded well to Reglan and Benadryl in the past. Patient much improved. Diagnosis Primary Impression: Cephalalgia Additional Instructions: Continue current medications. Follow-up with her primary doctor in the next 2-4 days. Return to the emergency department for any new or worsening symptoms. Med/Other Pt SpecificInfo: No Change to Meds Disposition: 01 DISCHARGE HOME Condition: Stable Dwayne Stephen MD Feb 25, 2018 22:41
[2018-02-25] MEDS ORDERED: SODIUM CHLORIDE 0.9% FLUSH 10 ML FLUSH IVF PRN (22:45)
[2018-02-25] MEDS ORDERED: DEXAMETHASONE SOD PHOS 20 MG/5 ML VIAL IV PUSH ONE (22:45)
[2018-02-25] MEDS ORDERED: METOCLOPRAMIDE HCL 10 MG/2 ML VIAL IVP ONE (22:45)
[2018-02-25] MEDS ORDERED: diphenhydrAMINE HCL 50 MG/ML VIAL IVP ONE (22:45)
[2018-02-25 23:09] VITALS: O2SAT 98
[2018-02-25] MEDS ORDERED: MORPHINE SULFATE 4 MG/ML INJ IV PUSH ONE (23:45)
[2018-02-26 00:55] VITALS: BP 123/85
== END 2018-02-26 00:59 | disposition home or self-care (01) ==
LOC: PHED 22:23
DX: R51 Headache (principal); F41.9 Anxiety disorder, unspecified; F17.200 Nicotine dependence, unspecified, uncomplicated; Z79.51 Long term (current) use of inhaled steroids; Z79.899 Other long term (current) drug therapy; Z88.5 Allergy status to narcotic agent; Z88.6 Allergy status to analgesic agent; Z88.8 Allergy status to other drugs, medicaments and biological substances
CPT/HCPCS: 96374; 96375; 99284; J1100; J1200; J2270; J2765; J7030

== ENCOUNTER 2018-03-23 23:25 | Emergency (ER) | payer OTHER, MEDICAID ==
[~2018-03-23] VITALS: Ht 165.1 cm; Wt 80.0 kg
[2018-03-23 23:36] VITALS: BP 120/72; PULSE 102; RESP 16; TEMP 98.9; O2SAT 98
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
[2018-03-24] MEDS ORDERED: SODIUM CHLOR 0.9% 1000 ML INJ 1,000 ML IV ONE (01:00)
[2018-03-24] MEDS ORDERED: METOCLOPRAMIDE HCL 10 MG/2 ML VIAL IV PUSH ONE (01:00)
[2018-03-24] MEDS ORDERED: diphenhydrAMINE HCL 50 MG/ML VIAL IV PUSH ONE (01:00)
[2018-03-24] MEDS ORDERED: MORPHINE SULFATE 4 MG/ML INJ IV PUSH ONE (01:00)
[2018-03-24 02:26] VITALS: BP 136/85
== END 2018-03-24 02:29 | disposition home or self-care (01) ==
LOC: PHED 23:25
DX: G43.909 Migraine, unspecified, not intractable, without status migrainosus (principal); F17.200 Nicotine dependence, unspecified, uncomplicated
CPT/HCPCS: 96361; 96374; 96375; 99284; J1200; J2270; J2765; J7030

== ENCOUNTER 2018-04-29 19:37 | Emergency (ER) | payer OTHER, MEDICAID ==
[~2018-04-29] VITALS: Ht 165.1 cm; Wt 81.8 kg
[2018-04-29 19:41] VITALS: BP 132/74; PULSE 105; RESP 20; TEMP 98.2; O2SAT 98
[2018-04-29] MEDS ORDERED: SODIUM CHLOR 0.9% 1000 ML INJ 1,000 ML IV ONE (20:17)
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
[2018-04-29] MEDS ORDERED: PERC10TA27 PO (20:24)
[2018-04-29] MEDS ORDERED: SODIUM CHLORIDE 0.9% FLUSH 10 ML FLUSH IVF PRN (20:30)
[2018-04-29] MEDS ORDERED: PROMETHAZINE INJ 25 MG/ML VIAL IM ONE (20:30)
[2018-04-29] MEDS ORDERED: diphenhydrAMINE HCL 50 MG/ML VIAL IVP ONE (20:30)
[2018-04-29] MEDS ORDERED: LORazepam 2 MG/ML VIAL IV PUSH ONE (20:30)
[2018-04-29] MEDS ORDERED: LORazepam 2 MG/ML VIAL IM ONE (21:15)
[2018-04-29] MEDS ORDERED: diphenhydrAMINE HCL 50 MG/ML VIAL IM ONE (21:15)
[2018-04-29 22:00] VITALS: RESP 18; O2SAT 95
== END 2018-04-29 22:20 | disposition home or self-care (01) ==
LOC: PHED 19:37
DX: G43.911 Migraine, unspecified, intractable, with status migrainosus (principal); M19.90 Unspecified osteoarthritis, unspecified site; J45.909 Unspecified asthma, uncomplicated; F41.9 Anxiety disorder, unspecified; F32.9 Major depressive disorder, single episode, unspecified; K21.9 Gastro-esophageal reflux disease without esophagitis; F17.200 Nicotine dependence, unspecified, uncomplicated
CPT/HCPCS: 96372; 99283; J1200; J2060; J2550

== ENCOUNTER 2018-07-12 17:23 | Observation (INO) ==
[2018-07-12] MEDS ORDERED: Sod Chloride 0.9% Inj 1,000 ML IV.SIG ONE ×2 (17:36→19:35)
[2018-07-12] MEDS ORDERED: Aluminum/Magnesium/Simethacone Susp 30 ML UDC PO ONE (17:36)
[2018-07-12 18:09] LABS: Baso # (Auto) 0.9 th/mm3 (0.0-0.2); Baso % (Auto) 5.5 % (0.0-2.0); Hematocrit 46.3 % (35.0-46.0); Hemoglobin 15.3 gm/dL (11.6-15.3); Lymph # (Auto) 1.4 th/mm3 (1.0-4.8); Lymph % (Auto) 8.3 % (9.0-44.0); Mean Corpuscular HGB Conc 33.1 % (32.0-36.0); Mean Corpuscular Hemoglobin 30.5 pg (27.0-34.0); Mean Corpuscular Volume 92.2 fL (80.0-100.0); Mean Platelet Volume 8.7 fL (7.0-11.0); Mono # (Auto) 0.8 th/mm3 (0.0-0.9); Mono % (Auto) 4.7 % (0.0-8.0); Neut # (Auto) 13.5 th/mm3 (1.8-7.7); Neut % (Auto) 81.5 % (16.0-70.0); Platelet Count 267 th/mm3 (150-450); Red Blood Count 5.03 mil/mm3 (4.00-5.30); Red Cell Distribution Width 13.7 % (11.6-17.2); White Blood Count 16.6 th/mm3 (4.0-11.0)
[2018-07-12 18:10] LABS: Bilirubin,Urine Negative (Negative); Clarity,Urine Clear (Clear); Color,Urine Yellow (Yellw/Straw); Glucose,Urine (UA) Negative (Negative); Leukocyte Esterase,Urine Negative (Negative); Nitrite,Urine Positive (Negative); PH,Urine 5.5 (5.0-8.5); Specific Gravity,Urine Greater/Equal 1.030 (1.002-1.035); Urobilinogen,Urine 0.2 mg/dL (Less than 2)
[2018-07-12 18:19] LABS: Chloride 106 meq/L (98-107); Potassium 3.6 meq/L (3.5-5.1); Sodium 135 meq/L (136-145)
[2018-07-12 18:20] LABS: Bacteria,Urine Many /hpf
[2018-07-12 18:22] LABS: Calcium 8.6 mg/dL (8.5-10.1); WBC,Urine 0-5 /hpf (0-5)
[2018-07-12 18:23] LABS: Albumin 3.8 g/dL (3.4-5.0); Anion Gap 8 meq/L (5-15); Blood Urea Nitrogen 13 mg/dL (7-18); Carbon Dioxide 21.5 meq/L (21.0-32.0); Glucose,Random 96 mg/dL (74-106); Lipase 193 U/L (73-393)
[2018-07-12 18:26] LABS: Activated Partial Thrombo Time 29.4 sec (24.3-30.1); Alanine Aminotransferase 19 U/L (10-53); Aspartate Aminotransferase 16 U/L (15-37); Glomerular Filtration Rate 78 mL/min (>89); Prothrombin Time 10.4 sec (9.8-11.6)
[2018-07-12 18:27] LABS: Total Protein 8.3 g/dL (6.4-8.2)
[2018-07-12 18:29] LABS: Alkaline Phosphatase 110 U/L (45-117)
[2018-07-12 19:04] LABS: Lymphocytes 6 % (9-44); Monocytes 8 % (0-8)
[2018-07-12 19:05] LABS: Platelet Estimate Normal (Normal); Platelet Morphology Normal (Normal); RBC Morphology Normal (Normal)
--- NOTE | 2018-07-12 19:07 | CT ---
EXAM DATE: 07/12/2018 6:51 PM EDT AGE/SEX: 38 years / Female INDICATIONS: Right lower quadrant pain. CLINICAL DATA: This is the patient's initial encounter. Patient reports that signs and symptoms have been present for 1 day and indicates a pain score of 4/10. MEDICAL/SURGICAL HISTORY: Renal calculi. Cholecystectomy. Hysterectomy. ORAL CONTRAST: No oral contrast ingested. RADIATION DOSE: 14.99 CTDI (mGy) COMPARISON: [facility], CT ABDOMEN & PELVIS W CONTRAST, 05/13/2016. . TECHNIQUE: Multiple contiguous axial images were obtained through the abdomen and pelvis following b olus infusion of 95 ml Omnipaque 350 (iohexol) nonionic water-soluble contrast as a single exam dos e. No oral contrast ingested. Using automated exposure control and adjustment of the mA and/or kV ac cording to patient size, radiation dose was kept as low as reasonably achievable to obtain optimal di agnostic quality images. DICOM format image data is available electronically for review and comparis on. FINDINGS: Lower Lungs: The visualized lower lungs are clear. Liver: The liver has a homogeneous density is stable low-density lesion in the right dome of the live r. There is no dilation of the biliary tree. The patient is status post cholecystectomy. Spleen: Homogeneous density without enlargement. Pancreas: Unremarkable without mass or calcification. Kidneys: Normal in size and shape. No evidence of mass or hydronephrosis. Adrenal Glands: Unremarkable. Aorta: The aorta and proximal iliac vessels are grossly unremarkable without aneurysmal dilation. Bowel/Mesentery: No oral contrast was given limiting the sensitivity of the exam. The bowel loops ar e grossly unremarkable. The cecum and sigmoid colon have a normal configuration. Abdominal Wall: Intact. Retroperitoneum: No evidence of adenopathy in the retrocrural, para-aortic, or deep pelvic regions. Bladder: Contours are smooth. Reproductive Organs: No abnormal masses or calcifications seen. Inguinal: The inguinal region is unremarkable without evidence of adenopathy. Bony Structures: Postsurgical changes are noted in the lumbar spine status post fusion. CONCLUSION: 1. Unremarkable bowel gas pattern. 2. Status post cholecystectomy. 3. Stable low-density cystic lesion in the dome of the right lobe of the liver. Electronically signed by: Chad Cantu MD 07/12/2018 7:06 PM EDT
[2018-07-12] MEDS ORDERED: Ciprofloxacin 400 MG/200 ML 400 MG/200 ML PIGGYBACK IV.SIG ONE (19:24)
[2018-07-12] MEDS ORDERED: Morphine Sulfate Inj 2 MG/ML Vial IV.PUSH ONE ×2 (19:24→23:55)
--- NOTE | 2018-07-12 19:46 | ED ---
HPI General Chief complaint: Abdominal Pain Stated complaint: Right lower abdomen pain/numbness History of Present Illness HPI narrative: 38-year-old female here for evaluation of nausea vomiting and abdominal pain. Abdominal pain started this morning in the right lower quadrant , 7 out of 10, nothing makes it better or worse, later this afternoon she started having nausea and vomiting, unable to hold anything down, no diarrhea. Patient had a fever at home, did not check her temperature, patient has fever here in the ER. No shortness of breath or chest pain. She had her gallbladder removed as well as hysterectomy. Related Data Home Medications Medication Instructions Recorded Confirmed albuterol sulfate 0.63 mg INHALATION Q4-6H PRN 06/14/18 07/12/18 clonazepam 1 mg PO TID 06/14/18 07/12/18 oxycodone-acetaminophen [Percocet] 1 tab PO Q6H PRN 06/14/18 07/12/18 Previous Rx's Medication Instructions Recorded ciprofloxacin HCl 500 mg PO Q12HR #14 tab 07/16/18 metronidazole 500 mg PO Q8HR #21 tab 07/16/18 Allergies Allergy/AdvReac Type Severity Reaction Status Date / Time hydromorphone Allergy Severe Itching Verified 07/12/18 17:29 ibuprofen Allergy Severe Nausea/Vomi Verified 07/12/18 17:29 ting ketorolac Allergy Severe Headache Verified 07/12/18 17:29 pregabalin Allergy Severe Dizziness Verified 07/12/18 17:29 tramadol Allergy Severe Headache Verified 07/12/18 17:29 butalbital Allergy Intermediate Headache Verified 07/12/18 17:29 sumatriptan Allergy Unknown Itching Verified 07/12/18 17:29 varenicline AdvReac Severe Dizziness Verified 07/12/18 17:29 prochlorperazine AdvReac Mild PANIC Verified 07/12/18 17:29 ATTACK CONTROL PILLS Allergy Severe Nausea/Vomi Uncoded 07/12/18 17:29 ting Review of Systems ROS: all other systems reviewed are negative [facility] Social History Social History Substance History: No History of Abuse Second Hand Smoke Exposure: Yes Smoking Status: Current every day smoker Tobacco Type: Cigarettes Packs Per Day: 1 Cigarettes Per Day: 20.0 How Often Do You Have a Drink Containing Alcohol: Monthly or less Recent Travel in [facility] within the Last 8 Weeks: No Recent Out of Country Travel within the Last 8 Weeks: No Immunization History Tetanus Immunization: <5 Years Hx Influenza Vaccine This Season: Yes Exam Narrative Exam Narrative: GENERAL: Alert oriented 3 no acute distress SKIN: Focused skin assessment warm/dry. HEAD: Atraumatic. Normocephalic. EYES: Pupils equal and round. No scleral icterus. No injection or drainage. ENT: No nasal bleeding or discharge. Mucous membranes pink and moist. NECK: Trachea midline. No JVD. CARDIOVASCULAR: Regular rate and rhythm. No murmur appreciated. RESPIRATORY: No accessory muscle use. Clear to auscultation. Breath sounds equal bilaterally. GASTROINTESTINAL: Tenderness on palpation of the right lower quadrant, rebound, positive McBurney sign. MUSCULOSKELETAL: No obvious deformities. No clubbing. No cyanosis. No edema. NEUROLOGICAL: Awake and alert. No obvious cranial nerve deficits. Motor grossly within normal limits. Normal speech. PSYCHIATRIC: Appropriate mood and affect; insight and judgment normal. Course Initial Documented Vital Signs Temperature 100.0 F H 07/12/18 17:25 Pulse Rate 117 H 07/12/18 17:25 Respiratory Rate 20 07/12/18 17:25 Blood Pressure 114/66 07/12/18 17:25 Pulse Oximetry 99 07/12/18 17:25 Last Documented Vital Signs Temperature 97.8 F 07/16/18 12:00 Pulse Rate 63 07/16/18 12:00 Respiratory Rate 16 07/16/18 12:00 Blood Pressure 92/56 L 07/16/18 12:00 Pulse Oximetry 98 07/16/18 12:00 Medical Decision Making [facility] Narrative Medical decision making narrative: 38-year-old female here for evaluation of abdominal pain and nausea and vomiting. Patient had multiple episodes of nausea and vomiting that is not well responding to medications, she is tachycardic, temperature 100, she has leukocytosis with left shift, sepsis work up done, started 2L IVF, CT scan shows no acute findings, but there is a concern for early appendicitis given the patient presentation and physical findings. will start IV flagyl and cipro, NPO, will admit to [facility] for surgical consultation. Side note: UA is positive for Nitrate, Pt has no urgency/frequency or burning urination, her presentation is not typical for UTI and further work up is warrented given her clinical condition. Medical Screen Exam Complete: Yes Emergency Medical Condition: Yes Lab Data Result diagrams: 07/16/18 07:14 07/16/18 07:14 Lab Results 07/12/18 07/12/18 07/12/18 Range/Units 17:58 17:58 17:58 CBC w Diff Slide review pending WBC 16.6 H (4.0-11.0) th/mm3 RBC 5.03 (4.00-5.30) mil/mm3 Hgb 15.3 (11.6-15.3) gm/dL Hct 46.3 H (35.0-46.0) % MCV 92.2 (80.0-100.0) fL MCH 30.5 (27.0-34.0) pg MCHC 33.1 (32.0-36.0) % RDW 13.7 (11.6-17.2) % Plt Count 267 (150-450) th/mm3 MPV 8.7 (7.0-11.0) fL Neut % (Auto) 81.5 H (16.0-70.0) % Lymph % (Auto) 8.3 L (9.0-44.0) % [place] % (Auto) 4.7 (0.0-8.0) % Eos % (Auto) 0.0 (0.0-4.0) % Baso % (Auto) 5.5 H (0.0-2.0) % Neut # (Auto) 13.5 H (1.8-7.7) th/mm3 Lymph # (Auto) 1.4 (1.0-4.8) th/mm3 [facility] # (Auto) 0.8 (0.0-0.9) th/mm3 Eos # (Auto) 0.0 (0.0-0.4) th/mm3 Baso # (Auto) 0.9 H (0.0-0.2) th/mm3 WBC Differential Manual diff final Seg Neuts % (Manual) 85 H (16-70) % Band Neuts % (Manual) 1 (0-6) % Lymphocytes % (Manual) 6 L (9-44) % Monocytes % (Manual) 8 (0-8) % Abs Neuts (Manual) 14.3 H (1.8-7.7) th/mm3 Differential Comment . Platelet Estimate Normal (Normal) Platelet Morphology Normal (Normal) RBC Morphology Normal (Normal) PT 10.4 (9.8-11.6) sec INR 1.0 Ratio APTT 29.4 (24.3-30.1) sec Sodium 135 L (136-145) meq/L Potassium 3.6 (3.5-5.1) meq/L Chloride 106 (98-107) meq/L Carbon Dioxide 21.5 (21.0-32.0) meq/L Anion Gap 8 (5-15) meq/L BUN 13 (7-18) mg/dL Creatinine 0.82 (0.50-1.00) mg/dL Estimated GFR 78 L (>89) mL/min Random Glucose 96 (74-106) mg/dL Lactic Acid (0.4-2.0) mmol/L Calcium 8.6 (8.5-10.1) mg/dL Total Bilirubin 0.4 (0.2-1.0) mg/dL AST 16 (15-37) U/L ALT 19 (10-53) U/L Alkaline Phosphatase 110 (45-117) U/L Total Protein 8.3 H (6.4-8.2) g/dL Albumin 3.8 (3.4-5.0) g/dL Lipase 193 (73-393) U/L Urine Color (Yellw/Straw) Urine Clarity (Clear) Urine pH (5.0-8.5) Ur Specific [place] (1.002-1.035) Urine Protein (Neg-Trace) mg/dL Urine Glucose (UA) (Negative) mg/dL Urine Ketones (Negative) mg/dL Urine Occult Blood (Negative) Urine Nitrate (Negative) Urine Bilirubin (Negative) Urine Urobilinogen (Less than 2) mg/dL Ur Leukocyte Esterase (Negative) Urine WBC (0-5) /hpf Ur Squamous Epith Cells (0-5) /hpf Urine Bacteria (None) /hpf Micro UA Comment Urine Culture Comments 07/12/18 07/12/18 07/13/18 Range/Units 17:58 19:50 12:57 CBC w Diff WBC (4.0-11.0) th/mm3 RBC (4.00-5.30) mil/mm3 Hgb 13.3 D (11.6-15.3) gm/dL Hct 39.4 (35.0-46.0) % MCV (80.0-100.0) fL MCH (27.0-34.0) pg MCHC (32.0-36.0) % RDW (11.6-17.2) % Plt Count (150-450) th/mm3 MPV (7.0-11.0) fL Neut % (Auto) (16.0-70.0) % Lymph % (Auto) (9.0-44.0) % [place] % (Auto) (0.0-8.0) % Eos % (Auto) (0.0-4.0) % Baso % (Auto) (0.0-2.0) % Neut # (Auto) (1.8-7.7) th/mm3 Lymph # (Auto) (1.0-4.8) th/mm3 [place] # (Auto) (0.0-0.9) th/mm3 Eos # (Auto) (0.0-0.4) th/mm3 Baso # (Auto) (0.0-0.2) th/mm3 WBC Differential Seg Neuts % (Manual) (16-70) % Band Neuts % (Manual) (0-6) % Lymphocytes % (Manual) (9-44) % Monocytes % (Manual) (0-8) % Abs Neuts (Manual) (1.8-7.7) th/mm3 Differential Comment Platelet Estimate (Normal) Platelet Morphology (Normal) RBC Morphology (Normal) PT (9.8-11.6) sec INR Ratio APTT (24.3-30.1) sec Sodium (136-145) meq/L Potassium (3.5-5.1) meq/L Chloride (98-107) meq/L Carbon Dioxide (21.0-32.0) meq/L Anion Gap (5-15) meq/L BUN (7-18) mg/dL Creatinine (0.50-1.00) mg/dL Estimated GFR (>89) mL/min Random Glucose (74-106) mg/dL Lactic Acid 1.1 (0.4-2.0) mmol/L Calcium (8.5-10.1) mg/dL Total Bilirubin (0.2-1.0) mg/dL AST (15-37) U/L ALT (10-53) U/L Alkaline Phosphatase (45-117) U/L Total Protein (6.4-8.2) g/dL Albumin (3.4-5.0) g/dL Lipase (73-393) U/L Urine Color Yellow (Yellw/Straw) Urine Clarity Clear (Clear) Urine pH 5.5 (5.0-8.5) Ur Specific [place] Greater/equal 1.030 (1.002-1.035) Urine Protein Trace (Neg-Trace) mg/dL Urine Glucose (UA) Negative (Negative) mg/dL Urine Ketones Trace H (Negative) mg/dL Urine Occult Blood Trace (Negative) Urine Nitrate Positive H (Negative) Urine Bilirubin Negative (Negative) Urine Urobilinogen 0.2 (Less than 2) mg/dL Ur Leukocyte Esterase Negative (Negative) Urine WBC 0-5 (0-5) /hpf Ur Squamous Epith Cells 6-10 H (0-5) /hpf Urine Bacteria Many H (None) /hpf Micro UA Comment Culture indicated Urine Culture Comments Culture indicated 07/13/18 07/14/18 07/14/18 Range/Units 23:26 03:04 03:04 CBC w Diff WBC 7.4 (4.0-11.0) th/mm3 RBC 3.97 L (4.00-5.30) mil/mm3 Hgb 12.2 12.5 (11.6-15.3) gm/dL Hct 36.8 37.2 (35.0-46.0) % MCV 92.8 (80.0-100.0) fL MCH 30.8 (27.0-34.0) pg MCHC 33.2 (32.0-36.0) % RDW 14.5 (11.6-17.2) % Plt Count 156 D (150-450) th/mm3 MPV 9.0 (7.0-11.0) fL Neut % (Auto) 81.5 H (16.0-70.0) % Lymph % (Auto) 13.2 (9.0-44.0) % [place] % (Auto) 4.8 (0.0-8.0) % Eos % (Auto) 0.2 (0.0-4.0) % Baso % (Auto) 0.3 (0.0-2.0) % Neut # (Auto) 6.0 (1.8-7.7) th/mm3 Lymph # (Auto) 1.0 (1.0-4.8) th/mm3 [facility] # (Auto) 0.4 (0.0-0.9) th/mm3 Eos # (Auto) 0.0 (0.0-0.4) th/mm3 Baso # (Auto) 0.0 (0.0-0.2) th/mm3 WBC Differential . Seg Neuts % (Manual) (16-70) % Band Neuts % (Manual) (0-6) % Lymphocytes % (Manual) (9-44) % Monocytes % (Manual) (0-8) % Abs Neuts (Manual) (1.8-7.7) th/mm3 Differential Comment Auto diff final Platelet Estimate (Normal) Platelet Morphology (Normal) RBC Morphology (Normal) PT (9.8-11.6) sec INR Ratio APTT (24.3-30.1) sec Sodium 139 (136-145) meq/L Potassium 3.5 (3.5-5.1) meq/L Chloride 110 H (98-107) meq/L Carbon Dioxide 19.1 L (21.0-32.0) meq/L Anion Gap 10 (5-15) meq/L BUN 4 L (7-18) mg/dL Creatinine 0.56 (0.50-1.00) mg/dL Estimated GFR Greater than 89 (>89) mL/min Random Glucose 81 (74-106) mg/dL Lactic Acid (0.4-2.0) mmol/L Calcium 7.5 L D (8.5-10.1) mg/dL Total Bilirubin (0.2-1.0) mg/dL AST (15-37) U/L ALT (10-53) U/L Alkaline Phosphatase (45-117) U/L Total Protein (6.4-8.2) g/dL Albumin (3.4-5.0) g/dL Lipase (73-393) U/L Urine Color (Yellw/Straw) Urine Clarity (Clear) Urine pH (5.0-8.5) Ur Specific [place] (1.002-1.035) Urine Protein (Neg-Trace) mg/dL Urine Glucose (UA) (Negative) mg/dL Urine Ketones (Negative) mg/dL Urine Occult Blood (Negative) Urine Nitrate (Negative) Urine Bilirubin (Negative) Urine Urobilinogen (Less than 2) mg/dL Ur Leukocyte Esterase (Negative) Urine WBC (0-5) /hpf Ur Squamous Epith Cells (0-5) /hpf Urine Bacteria (None) /hpf Micro UA Comment Urine Culture Comments 07/15/18 07/15/18 07/16/18 Range/Units 04:19 04:19 07:14 CBC w Diff WBC 6.9 6.7 (4.0-11.0) th/mm3 RBC 3.98 L 3.89 L (4.00-5.30) mil/mm3 Hgb 12.2 12.0 (11.6-15.3) gm/dL Hct 36.3 36.1 (35.0-46.0) % MCV 91.2 92.7 (80.0-100.0) fL MCH 30.7 30.9 (27.0-34.0) pg MCHC 33.6 33.3 (32.0-36.0) % RDW 14.6 14.3 (11.6-17.2) % Plt Count 156 188 (150-450) th/mm3 MPV 9.5 9.6 (7.0-11.0) fL Neut % (Auto) 68.7 58.6 (16.0-70.0) % Lymph % (Auto) 19.9 25.5 (9.0-44.0) % [facility] % (Auto) 9.0 H 12.7 H (0.0-8.0) % Eos % (Auto) 2.1 2.6 (0.0-4.0) % Baso % (Auto) 0.3 0.6 (0.0-2.0) % Neut # (Auto) 4.8 3.9 (1.8-7.7) th/mm3 Lymph # (Auto) 1.4 1.7 (1.0-4.8) th/mm3 [facility] # (Auto) 0.6 0.9 (0.0-0.9) th/mm3 Eos # (Auto) 0.1 0.2 (0.0-0.4) th/mm3 Baso # (Auto) 0.0 0.0 (0.0-0.2) th/mm3 WBC Differential . . Seg Neuts % (Manual) (16-70) % Band Neuts % (Manual) (0-6) % Lymphocytes % (Manual) (9-44) % Monocytes % (Manual) (0-8) % Abs Neuts (Manual) (1.8-7.7) th/mm3 Differential Comment Auto diff final Auto diff final Platelet Estimate (Normal) Platelet Morphology (Normal) RBC Morphology (Normal) PT (9.8-11.6) sec INR Ratio APTT (24.3-30.1) sec Sodium 139 (136-145) meq/L Potassium 3.3 L (3.5-5.1) meq/L Chloride 109 H (98-107) meq/L Carbon Dioxide 21.6 (21.0-32.0) meq/L Anion Gap 8 (5-15) meq/L BUN 2 L (7-18) mg/dL Creatinine 0.48 L (0.50-1.00) mg/dL Estimated GFR Greater than 89 (>89) mL/min Random Glucose 87 (74-106) mg/dL Lactic Acid (0.4-2.0) mmol/L Calcium 7.8 L (8.5-10.1) mg/dL Total Bilirubin (0.2-1.0) mg/dL AST (15-37) U/L ALT (10-53) U/L Alkaline Phosphatase (45-117) U/L Total Protein (6.4-8.2) g/dL Albumin (3.4-5.0) g/dL Lipase (73-393) U/L Urine Color (Yellw/Straw) Urine Clarity (Clear) Urine pH (5.0-8.5) Ur Specific [place] (1.002-1.035) Urine Protein (Neg-Trace) mg/dL Urine Glucose (UA) (Negative) mg/dL Urine Ketones (Negative) mg/dL Urine Occult Blood (Negative) Urine Nitrate (Negative) Urine Bilirubin (Negative) Urine Urobilinogen (Less than 2) mg/dL Ur Leukocyte Esterase (Negative) Urine WBC (0-5) /hpf Ur Squamous Epith Cells (0-5) /hpf Urine Bacteria (None) /hpf Micro UA Comment Urine Culture Comments 07/16/18 Range/Units 07:14 CBC w Diff WBC (4.0-11.0) th/mm3 RBC (4.00-5.30) mil/mm3 Hgb (11.6-15.3) gm/dL Hct (35.0-46.0) % MCV (80.0-100.0) fL MCH (27.0-34.0) pg MCHC (32.0-36.0) % RDW (11.6-17.2) % Plt Count (150-450) th/mm3 MPV (7.0-11.0) fL Neut % (Auto) (16.0-70.0) % Lymph % (Auto) (9.0-44.0) % [facility] % (Auto) (0.0-8.0) % Eos % (Auto) (0.0-4.0) % Baso % (Auto) (0.0-2.0) % Neut # (Auto) (1.8-7.7) th/mm3 Lymph # (Auto) (1.0-4.8) th/mm3 [facility] # (Auto) (0.0-0.9) th/mm3 Eos # (Auto) (0.0-0.4) th/mm3 Baso # (Auto) (0.0-0.2) th/mm3 WBC Differential Seg Neuts % (Manual) (16-70) % Band Neuts % (Manual) (0-6) % Lymphocytes % (Manual) (9-44) % Monocytes % (Manual) (0-8) % Abs Neuts (Manual) (1.8-7.7) th/mm3 Differential Comment Platelet Estimate (Normal) Platelet Morphology (Normal) RBC Morphology (Normal) PT (9.8-11.6) sec INR Ratio APTT (24.3-30.1) sec Sodium 142 (136-145) meq/L Potassium 3.8 (3.5-5.1) meq/L Chloride 111 H (98-107) meq/L Carbon Dioxide 22.5 (21.0-32.0) meq/L Anion Gap 9 (5-15) meq/L BUN 5 L (7-18) mg/dL Creatinine 0.57 (0.50-1.00) mg/dL Estimated GFR Greater than 89 (>89) mL/min Random Glucose 92 (74-106) mg/dL Lactic Acid (0.4-2.0) mmol/L Calcium 7.9 L (8.5-10.1) mg/dL Total Bilirubin (0.2-1.0) mg/dL AST (15-37) U/L ALT (10-53) U/L Alkaline Phosphatase (45-117) U/L Total Protein (6.4-8.2) g/dL Albumin (3.4-5.0) g/dL Lipase (73-393) U/L Urine Color (Yellw/Straw) Urine Clarity (Clear) Urine pH (5.0-8.5) Ur Specific [place] (1.002-1.035) Urine Protein (Neg-Trace) mg/dL Urine Glucose (UA) (Negative) mg/dL Urine Ketones (Negative) mg/dL Urine Occult Blood (Negative) Urine Nitrate (Negative) Urine Bilirubin (Negative) Urine Urobilinogen (Less than 2) mg/dL Ur Leukocyte Esterase (Negative) Urine WBC (0-5) /hpf Ur Squamous Epith Cells (0-5) /hpf Urine Bacteria (None) /hpf Micro UA Comment Urine Culture Comments Imaging Data Radiologist's impression: Abdomen/Pelvis CT 07/12/18 17:36 CONCLUSION: 1. Unremarkable bowel gas pattern. 2. Status post cholecystectomy. 3. Stable low-density cystic lesion in the dome of the right lobe of the liver. Discharge Plan Discharge Disposition Patient Disposition: 02 Transfer To [facility] Discharge Condition Condition: Stable Discharge Details Anticipated Discharge Date: 07/16/18 Diagnosis: SIRS (systemic inflammatory response syndrome) Physicians Team ED Provider: Cedrick Reynaga Primary Care Provider: Fernando Campbell Attending Provider: Kaelyn Mullins Other Providers: Vern Jo ; Surgeons,[facility] ; Zak Ko ; [employer] Status ED Status: Left Department Discharge Information Discharge Date/Time: 07/13/18 00:11
[2018-07-12] MEDS: Sod Chloride 0.9% Inj 1,000 ML IV.CONT SCH (19:53)
[2018-07-12] MEDS ORDERED: Morphine Sulfate Inj 2 MG/ML Vial IV.PUSH PRN (21:15)
[2018-07-12] MEDS: Morphine Inj 4 MG/ML Vial IV.PUSH PRN (21:23)
[2018-07-13] MEDS ORDERED: Morphine Sulfate Inj 2 MG/ML Vial IV.PUSH ONE (00:05)
[2018-07-13] MEDS: Morphine Inj 4 MG/ML Vial IV.PUSH PRN ×7 (01:52→22:43)
[2018-07-13] MEDS: Sod Chloride 0.9% Inj 1,000 ML IV.CONT SCH ×2 (05:52→17:26)
[2018-07-13] MEDS: Ciprofloxacin 400 MG/200 ML 400 MG/200 ML PIGGYBACK IV.SIG SCH ×2 (08:26→19:25)
--- NOTE | 2018-07-13 09:19 | P.HPIM ---
History of Present Illness Service: Medicine Primary Care Physician: Fernando Campbell MD Chief Complaint: abdominal pain and N/V. History of Present Illness: This is a 38 y/o F with hx of multiple musculoskeletal surgeries and hysterectomy who p/w abdominal pain and N/V. Patient stated at 8 am yesterday she had right lower quadrant pain. At 5 pm she had nausea and vomiting. Denies any fevers or chills. She says she went to [facility] and was transferred here for surgical consultation. Patient stated that this morning around 5 AM she had blood coming from her rectum. Blood described as red to maroon color. Patient stated that she had a half a cup. Per patient's nurse she had tinge of blood but mostly stool were mucousy. Patient had a colonoscopy per patient "a very long time ago." She stated that it was normal and she was unsure why she had colonoscopy done. Patient denies any family history of colon cancer. Patient stated that the morphine only last for 3 hours and asking to increase frequency. At home she takes Percocet about every 6-8 hours for her chronic pain. She has no other complaints. - Diagnosis (1) Abdominal pain (2) GI bleed Inpatient Certification: I certify that the inpatient services were ordered in accordance with Medicare regulations governing the order. This includes certification that hospital inpatient services are reasonable and necessary and in the case of services not specified as inpatient-only under 42 CFR 419.22(n), that they are appropriately provided as inpatient services in accordance to with the 2-midnight benchmark under 43 CFR 412.3(e) Estimated Total Length of Stay (Days): 2 Plans for Post Hospital Care: Home Review of Systems All other systems reviewed negative except as stated in HPI Constitutional: Denies anorexia, Denies body ache(s), Denies chills, Denies daytime sleepiness, Denies excessive sweating, Denies fatigue, Denies fever(s), Denies headache(s), Denies increased appetite, Denies lack of energy, Denies malaise, Denies night sweats, Denies weakness, Denies weight gain, Denies weight loss, Denies other Eyes: Denies blind spots, Denies blurry vision, Denies bulging eyes, Denies change in vision, Denies double vision, Denies discharge, Denies dry eyes, Denies floaters, Denies irritation, Denies itchy eyes, Denies loss of vision, Denies pain, Denies requires corrective lenses, Denies sensitivity to light, Denies other Ears, Nose, Mouth, and Throat: Denies abnormal hearing, Denies bleeding gums, Denies bad breath, Denies change in voice, Denies dental pain, Denies difficulty swallowing, Denies dizziness, Denies dry mouth, Denies ear discharge , Denies ear pain, Denies facial pain, Denies headache(s), Denies hearing loss, Denies hoarseness, Denies lip swelling, Denies nosebleed, Denies mouth lesions, Denies mouth pain, Denies nasal congestion, Denies nasal discharge, Denies nasal obstruction, Denies nasal trauma, Denies neck lump, Denies neck pain, Denies nose pain, Denies pain with swallowing, Denies poor balance, Denies post nasal drip, Denies ringing in the ears, Denies sinus pain, Denies sinus pressure , Denies sore throat, Denies throat swelling, Denies tongue swelling, Denies other Cardiovascular: Denies chest pain, Denies chest pain at rest, Denies chest pain with activity, Denies excessive sweating, Denies fainting, Denies fast heart rate, Denies foot swelling, Denies generalized swelling, Denies irregular heart rhythm, Denies leg pain with activity, Denies leg sores, Denies leg swelling, Denies lightheadedness, Denies radiating jaw, neck or arm pain, Denies rapid, pounding, or irregular heartbeat, Denies shortness of breath, Denies shortness of breath with activity, Denies shortness of breath when lying down, Denies shortness of breath causing sudden awakening, Denies slow heart rate, Denies other Respiratory: Denies change in phlegm color, Denies chest congestion, Denies cough, Denies coughing up blood, Denies excessive phlegm production, Denies pain on inspiration, Denies pain with cough, Denies shortness of breath, Denies shortness of breath with activity, Denies snoring, Denies stridor, Denies wheezing, Denies other Gastrointestinal: Reports abdominal pain, Reports nausea, Reports vomiting Genitourinary: Denies abnormal periods, Denies abnormal vaginal bleeding, Denies absent period, Denies bleeding between periods, Denies blood in urine, Denies difficulty starting urination, Denies difficulty urinating, Denies dribbling after urination, Denies frequent nighttime urination, Denies genital itching, Denies genital lesions, Denies heavy periods, Denies hot flashes, Denies light periods, Denies nipple discharge, Denies painful intercourse, Denies painful periods, Denies painful urination, Denies pelvic pain, Denies prolapse symptoms, Denies sexual problems, Denies side pain, Denies urinary incontinence, Denies urinary urgency, Denies vaginal discharge, Denies vaginal dryness, Denies vaginal odor, Denies vaginal itching, Denies other Musculoskeletal: Denies abnormal walking, Denies back pain, Denies body aches, Denies decreased muscle mass, Denies deformity, Denies joint pain, Denies joint swelling, Denies limited joint movement, Denies loss of height, Denies muscle cramps, Denies muscle weakness, Denies neck pain, Denies numbness, Denies radiating pain into limb, Denies stiffness, Denies tingling, Denies other Skin/Breast: Denies acne, Denies bleeding lesions, Denies boil, Denies breast swelling, Denies breast skin changes, Denies breast pain, Denies breast lump, Denies change in breast shape, Denies change in hair, Denies change in skin color, Denies changing lesions, Denies dry skin, Denies excessive hair growth, Denies hair loss, Denies itching, Denies lesions, Denies nail changes, Denies new lesions, Denies nipple discharge, Denies non-healing lesions, Denies redness , Denies sensitivity to light, Denies rash, Denies skin pain, Denies skin ulcer , Denies sores, Denies stretch duenas, Denies unusual bruising, Denies wounds, Denies yellowing of the skin, Denies other Neurologic: Denies abnormal hearing, Denies abnormal movements, Denies abnormal speech, Denies abnormal walking, Denies behavioral changes, Denies burning sensations, Denies confusion, Denies dizziness, Denies fainting, Denies frequent falls, Denies headache(s), Denies lack of coordination, Denies localized weakness, Denies loss of vision, Denies memory loss, Denies numbness, Denies other visual disturbances, Denies radiating pain, Denies restless legs, Denies convulsions, Denies seizure-like activity, Denies sensory deficit, Denies tingling, Denies tingling/numbness/burning sensations, Denies tremor(s), Denies unsteadiness, Denies weakness, Denies other Psychiatric: Denies abnormal sleep pattern, Denies anxiety, Denies behavioral changes, Denies change in appetite, Denies change in sex drive, Denies confusion , Denies depression, Denies difficulty concentrating, Denies hearing things others do not hear, Denies hopelessness, Denies irritability, Denies lack of enjoyment, Denies memory loss, Denies mood swings, Denies panic attacks, Denies paranoia, Denies seeing things others do not see, Denies sensing things others do not sense, Denies tactile hallucinations, Denies thoughts of hurting/killing others, Denies thoughts of hurting/killing yourself, Denies other Endocrine: Denies cold intolerance, Denies excessive sweating, Denies flushing, Denies heat intolerance, Denies increased hunger, Denies increased thirst, Denies increased urination, Denies rapid, pounding, or irregular heartbeat, Denies other Hematologic/Lymphatic: Denies easy bleeding, Denies easy bruising, Denies enlarged lymph nodes, Denies other Allergic/Immunologic: Denies GI upset with certain foods, Denies hives, Denies itchy eyes, Denies lip swelling, Denies seasonal runny nose, Denies throat swelling, Denies tongue swelling, Denies wheezing, Denies other PMFSH - History History Provided By: Patient - Medical History Medical History: Medical History (Last Reviewed 07/13/18 @ 01:58 by Laurie Tirado RN) History of anxiety History of asthma History of depression History of kidney stones History of right shoulder fracture Hx of chronic arthritis Hx of hysterectomy Hx of migraines - Surgical History Surgical History: Surgical History (Last Reviewed 07/13/18 @ 01:58 by Laurie Tirado RN) History of back surgery History of knee replacement procedure of right knee Hx of cholecystectomy - Family History Family History: Family History (Last Updated 07/13/18 @ 09:17 by Lilliana Ramirez MD) Other CAD (coronary artery disease) - Tobacco History Second Hand Smoke Exposure: Yes Tobacco Use In Past 30 Days: Yes Smoking Status: Current every day smoker Tobacco Type: Cigarettes Packs Per Day: 1 Cigarettes Per Day: 0 - Alcohol History How Often Do You Have a Drink Containing Alcohol: Monthly or less - Substance Use History Substance History: No History of Abuse - Travel History Recent Travel in the [place] Within the Last 8 Weeks: No Recent Travel Out of the Country Within the Last 8 Weeks: No - Immunization History Tetanus Immunization: Unsure Hx Influenza Vaccine This Season: No Medications and Allergies Active Medications: Active Medications Al Hydroxide/Mg Hydroxide (Milk Of Magnrichard Liq) 30 ml PO Q12H PRN PRN Reason: Mild Constipation Sodium Chloride (Ns Inj) 1,000 mls @ 100 mls/hr IV.CONT .Q10H JORGE Last Admin: 07/13/18 05:52 Dose: 100 mls/hr Ciprofloxacin/Dextrose (Cipro 400 Mg/200 Ml Inj) 400 mg in 200 mls @ 200 mls/ hr IV.SIG Q12H JORGE Last Admin: 07/13/18 08:26 Dose: 200 mls/hr Metronidazole/Sodium Chloride (Flagyl 500 Mg Inj) 100 mls @ 100 mls/hr IV.SIG Q8H JORGE Last Infusion: 07/13/18 06:55 Dose: Infused Morphine Sulfate (Morphine Inj) 2 mg IV.PUSH Q4H PRN PRN Reason: Pain 3 to 6 Morphine Sulfate (Morphine Inj) 4 mg IV.PUSH Q4H PRN PRN Reason: Pain 7 to 10 Last Admin: 07/13/18 05:51 Dose: 4 mg Ondansetron HCl (Zofran Inj) 4 mg IV.PUSH Q6H PRN PRN Reason: NAUSEA OR VOMITING Last Admin: 07/13/18 05:51 Dose: 4 mg Allergies Allergy/AdvReac Type Severity Reaction Status Date / Time hydromorphone Allergy Severe Itching Verified 07/12/18 17:29 ibuprofen Allergy Severe Nausea/Vomi Verified 07/12/18 17:29 ting ketorolac Allergy Severe Headache Verified 07/12/18 17:29 pregabalin Allergy Severe Dizziness Verified 07/12/18 17:29 tramadol Allergy Severe Headache Verified 07/12/18 17:29 butalbital Allergy Intermediate Headache Verified 07/12/18 17:29 caffeine Allergy Intermediate pt denies Verified 07/12/18 17:29 allergy sumatriptan Allergy Unknown Itching Verified 07/12/18 17:29 varenicline AdvReac Severe Dizziness Verified 07/12/18 17:29 prochlorperazine AdvReac Mild PANIC Verified 07/12/18 17:29 ATTACK CONTROL PILLS Allergy Severe Nausea/Vomi Uncoded 07/12/18 17:29 ting Home Medications Medication Instructions Recorded Confirmed Type albuterol sulfate 0.63 mg INHALATION Q4-6H PRN 06/14/18 07/12/18 History clonazepam 1 mg PO TID 06/14/18 07/12/18 History oxycodone-acetaminophen [Percocet] 1 tab PO Q6H PRN 06/14/18 07/12/18 History Exam Vital signs: Vital Signs 07/12/18 17:25 07/12/18 20:06 07/12/18 21:28 Temperature 100.0 F H Pulse Rate 117 H 90 Respiratory Rate 20 17 16 Blood Pressure 114/66 113/67 Pulse Oximetry 99 97 07/12/18 22:24 07/13/18 00:45 07/13/18 04:00 Temperature 99.4 F 99.6 F Pulse Rate 85 94 H 92 H Respiratory Rate 16 18 20 Blood Pressure 110/65 108/57 L 102/59 L Pulse Oximetry 97 96 97 07/13/18 08:00 Temperature 98.5 F Pulse Rate 91 H Respiratory Rate 16 Blood Pressure 99/63 L Pulse Oximetry 97 Intake & Output 07/12/18 07/13/18 07/13/18 18:59 06:59 18:59 Intake Total 3400 / 3400 Balance 3400 / 3400 Weight 77 kg 77 kg Intake: IV 3400 / 3400 NS Inj 1,000 ML @ 100 mls/hr IV 1000 / 1000 .CONT .Q10H JORGE Rx#:[id number] Cipro 400 MG/200 ML Inj 400 mg 200 / 200 In 200 ml @ 200 mls/hr IV.SIG ONCE ONE Rx#:[id number] NS Inj 1,000 ML @ Wide Open IV. 1999 SIG BOLUS ONE Rx#:[id number] Flagyl 500 MG Inj 100 ML @ 100 200 / 200 mls/hr IV.SIG Q8H JORGE Rx#: [id number] Oral 0 / 0 Other: # Voids 4 Date of Last Bowel Movement 07/13/18 07/13/18 # Bowel Movements 1 Weight On Admission 77 kg - Constitutional no acute distress - Routine HEENT Exam Head: Present: normocephalic, atraumatic Eye: Present: EOMI, PERRL, conjunctival icterus, scleral injection ENT: Present: mucous membranes moist, mucous membranes dry, oropharynx clear, external ear normal - Routine Neck Exam Present: supple, full ROM, trachea midline, tracheal deviation - Routine Respiratory Exam Present: CTA bilaterally - Routine Cardiovascular Exam Present: RRR, S1, S2 - Routine Abdominal Exam Present: soft, normoactive bowel sounds, tenderness (+TTP RLQ) Comments: nondistended. no peritoneal signs. - Routine Extremities Exam Present: edema, pulses intact - Routine Skin Exam Present: intact - Routine Neurological Exam Present: alert, oriented X3, moving all extremities Results - Labs CBC & Chem 7: 07/12/18 17:58 07/12/18 17:58 Labs: Short CBC 07/12/18 Range/Units 17:58 WBC 16.6 H (4.0-11.0) th/mm3 Hgb 15.3 (11.6-15.3) gm/dL Hct 46.3 H (35.0-46.0) % Plt Count 267 (150-450) th/mm3 BMP 07/12/18 17:58 Sodium 135 L Potassium 3.6 Chloride 106 Carbon Dioxide 21.5 BUN 13 Creatinine 0.82 Calcium 8.6 Liver Function 07/12/18 Range/Units 17:58 Total Bilirubin 0.4 (0.2-1.0) mg/dL AST 16 (15-37) U/L ALT 19 (10-53) U/L Alkaline Phosphatase 110 (45-117) U/L Albumin 3.8 (3.4-5.0) g/dL Urine 07/12/18 Range/Units 17:58 Urine Color Yellow (Yellw/Straw) Urine Clarity Clear (Clear) Urine pH 5.5 (5.0-8.5) Ur Specific [place] Greater/equal 1.030 (1.002-1.035) Urine Protein Trace (Neg-Trace) mg/dL Urine Glucose (UA) Negative (Negative) mg/dL - Imaging Impressions Abdomen/Pelvis CT 07/12/18 17:36 CONCLUSION: 1. Unremarkable bowel gas pattern. 2. Status post cholecystectomy. 3. Stable low-density cystic lesion in the dome of the right lobe of the liver. Caprini VTE Risk Assessment Caprini VTE Risk Assessment: No/Low Risk (score <= 1) (contraindicated due to GI bleed) VTE Pharmacological Exception Reason: Hemorrhage Caprini Risk Assessment Model: Point Value = 1 Point Value = 2 Point Value = 3 Point Value = 5 Age 41-60 Minor surgery BMI > 25 kg/m2 Swollen legs Varicose veins or History of unexplained or recurrent spontaneous Oral contraceptives or hormone replacement Sepsis (< 1 month) Serious lung disease, including pneumonia (< 1 month) Abnormal pulmonary function Acute myocardial infarction Congestive heart failure (< 1 month) History of inflammatory bowel disease Medical patient at bed rest Age 61-74 Arthroscopic surgery Major open surgery (> 45 min) Laparoscopic surgery (> 45 min) Malignancy Confined to bed (> 72 hours) Immobilizing plaster cast Central venous access Age >= 75 History of VTE Family history of VTE Factor V Leiden Prothrombin [id number] Lupus anticoagulant Anticardiolipin antibodies Elevated serum homocysteine Heparin-induced thrombocytopenia Other congenital or acquired thrombophilia Stroke (< 1 month) Elective arthroplasty Hip, pelvis, or leg fracture Acute spinal cord injury (< 1 month) Prophylaxis Regimen: Total Risk Factor Score Risk Level Prophylaxis Regimen 0-1 Low Early ambulation 2 Moderate Order ONE of the following: *Sequential Compression Device (SCD) *Heparin 5000 units SQ BID 3-4 Higher Order ONE of the following medications: *Heparin 5000 units SQ TID *Enoxaparin/Lovenox 40 mg SQ daily (WT < 150 kg, CrCl > 30 mL/min) *Enoxaparin/Lovenox 30 mg SQ daily (WT < 150 kg, CrCl > 10-29 mL/min) *Enoxaparin/Lovenox 30 mg SQ BID (WT < 150 kg, CrCl > 30 mL/min) AND/OR *Sequential Compression Device (SCD) 5 or more Highest Order ONE of the following medications: *Heparin 5000 units SQ TID (Preferred with Epidurals) *Enoxaparin/Lovenox 40 mg SQ daily (WT < 150 kg, CrCl > 30 mL/min) *Enoxaparin/Lovenox 30 mg SQ daily (WT < 150 kg, CrCl > 10-29 mL/min) *Enoxaparin/Lovenox 30 mg SQ BID (WT < 150 kg, CrCl > 30 mL/min) AND *Sequential Compression Device (SCD) Assessment and Plan - Assessment (1) Abdominal pain Code(s): R10.9 - Unspecified abdominal pain Status: Acute Onset Date: ~07/12 Plan: surgery consulted and spoke to Zully Link who stated unlikely acute appendicitis. Patient now c/o rectal bleeding. consult GI. continue with supportive care with pain control and IVFs. (2) GI bleed Code(s): K92.2 - Gastrointestinal hemorrhage, unspecified Status: Acute Plan: started today. patient is hemodynamically stable monitor H/H. consult GI. - Plan Code Status: full code Discussed Condition With: patient and her nurse H&P: Quality - VTE Deep Vein Thrombosis/Pulmonary Embolism Present on Admission: No (1) Abdominal pain Qualifiers: Abdominal location: right lower quadrant Qualified Code(s): R10.31 - Right lower quadrant pain (2) GI bleed Qualifiers: GI bleed type/associated pathology: anorectal hemorrhage Qualified Code(s): K62.5 - Hemorrhage of anus and rectum
--- NOTE | 2018-07-13 10:01 | P.CONGS ---
[facility] Gen Surgery Consult Note Consult date: 07/13/18 Reason for consult: abdominal pain Narrative: This is a 38 year old female with a past medical history of anxiety, asthma, depression, kidney stones, chronic arthritis and migraines. The patient presented to the [place] emergency department yesterday with complaints of abdominal pain with associated nausea and vomiting. The patient states she woke up about 5 AM on Wednesday and was fine with no pain and about 2 hours later she developed severe onset of abdominal pain. She rates the pain a 7 out of 10 and locates the pain at her right lower quadrant. The patient had a CT scan of her abdomen and pelvis done which shows no acute findings. The patient does have an elevated white blood cell count of 16.6. All her other labs are essentially normal. The patient does have a urine culture pending. During the interview the patient does state that she has had maroon colored stools that began yesterday around 5 PM. She does report that she had a colonoscopy done about 6 or 7 years ago which was normal. She cannot remember why she had a colonoscopy done at such a young age. A General Surgery consultation has been requested. <Zully Reveles - Last Filed: 07/13/18 16:13> Narrative: CONSULTATION NOTE FOR SURGICAL ATTENDING, DR. VERN JO <Vern Jo - Last Filed: 07/13/18 18:57> Review of Systems Constitutional: Reports body ache(s), Denies chills, Denies fever(s) Eyes: Denies dry eyes Ears, Nose, Mouth, and Throat: Denies dizziness, Denies headache(s) Cardiovascular: Denies chest pain, Denies chest pain at rest, Denies chest pain with activity Respiratory: Denies chest congestion, Denies cough Gastrointestinal: Reports abdominal pain, Reports change in stools, Reports nausea, Reports vomiting Genitourinary: Reports pelvic pain Musculoskeletal: Denies abnormal walking Skin/Breast: Denies boil Neurologic: Denies abnormal hearing Psychiatric: Denies confusion, Denies depression Endocrine: Denies cold intolerance, Denies heat intolerance Hematologic/Lymphatic: Denies easy bleeding Allergic/Immunologic: Denies GI upset with certain foods <Zully Reveles - Last Filed: 07/13/18 16:13> [facility] - History History Provided By: Patient - Medical History Medical History: Medical History (Last Updated 07/13/18 @ 09:58 by KM Hall) H/O: hysterectomy History of hysterectomy History of anxiety History of asthma History of depression History of kidney stones History of right shoulder fracture Hx of chronic arthritis Hx of migraines - Surgical History Surgical History: Surgical History (Last Reviewed 07/13/18 @ 09:57 by KM Hall) History of back surgery History of knee replacement procedure of right knee Hx of cholecystectomy - Family History Family History: Family History (Last Updated 07/13/18 @ 09:17 by Lilliana Ramirez MD) Other CAD (coronary artery disease) - Tobacco History Second Hand Smoke Exposure: Yes Tobacco Use In Past 30 Days: Yes Smoking Status: Current every day smoker Tobacco Type: Cigarettes Packs Per Day: 1 Cigarettes Per Day: 0 - Alcohol History How Often Do You Have a Drink Containing Alcohol: Monthly or less - Substance Use History Substance History: No History of Abuse - Travel History Recent Travel in the [place] Within the Last 8 Weeks: No Recent Travel Out of the Country Within the Last 8 Weeks: No - Immunization History Tetanus Immunization: Unsure Hx Influenza Vaccine This Season: No <Zully Reveles - Last Filed: 07/13/18 16:13> - Medical History Medical History: Medical History (Last Reviewed 07/13/18 @ 18:55 by Vern Jo MD) H/O: hysterectomy History of hysterectomy History of anxiety History of asthma History of depression History of kidney stones History of right shoulder fracture Hx of chronic arthritis Hx of migraines - Surgical History Surgical History: Surgical History (Last Reviewed 07/13/18 @ 18:55 by Vern Jo MD) History of back surgery History of knee replacement procedure of right knee Hx of cholecystectomy - Family History Family History: Family History (Last Reviewed 07/13/18 @ 18:55 by Vern Jo MD) Other CAD (coronary artery disease) <Vern Jo - Last Filed: 07/13/18 18:57> Medications and Allergies Active Medications: Active Medications Al Hydroxide/Mg Hydroxide (Milk Of Magnesia Liq) 30 ml PO Q12H PRN PRN Reason: Mild Constipation Sodium Chloride (Ns Inj) 1,000 mls @ 100 mls/hr IV.CONT .Q10H ON LICENSE OF [facility] Last Admin: 07/13/18 05:52 Dose: 100 mls/hr Ciprofloxacin/Dextrose (Cipro 400 Mg/200 Ml Inj) 400 mg in 200 mls @ 200 mls/ hr IV.SIG Q12H ON LICENSE OF [facility] Last Infusion: 07/13/18 09:26 Dose: Infused Metronidazole/Sodium Chloride (Flagyl 500 Mg Inj) 100 mls @ 100 mls/hr IV.SIG Q8H ON LICENSE OF [facility] Last Infusion: 07/13/18 06:55 Dose: Infused Morphine Sulfate (Morphine Inj) 2 mg IV.PUSH Q4H PRN PRN Reason: Pain 3 to 6 Morphine Sulfate (Morphine Inj) 4 mg IV.PUSH Q4H PRN PRN Reason: Pain 7 to 10 Last Admin: 07/13/18 05:51 Dose: 4 mg Ondansetron HCl (Zofran Inj) 4 mg IV.PUSH Q6H PRN PRN Reason: NAUSEA OR VOMITING Last Admin: 07/13/18 05:51 Dose: 4 mg <Zully Reveles - Last Filed: 07/13/18 16:13> Active Medications: Active Medications Al Hydroxide/Mg Hydroxide (Milk Of Magnesia Liq) 30 ml PO Q12H PRN PRN Reason: Mild Constipation Sodium Chloride (Ns Inj) 1,000 mls @ 100 mls/hr IV.CONT .Q10H JORGE Last Admin: 07/13/18 17:26 Dose: 100 mls/hr Ciprofloxacin/Dextrose (Cipro 400 Mg/200 Ml Inj) 400 mg in 200 mls @ 200 mls/ hr IV.SIG Q12H JORGE Last Infusion: 07/13/18 09:26 Dose: Infused Metronidazole/Sodium Chloride (Flagyl 500 Mg Inj) 100 mls @ 100 mls/hr IV.SIG Q8H JORGE Last Infusion: 07/13/18 13:46 Dose: Infused Morphine Sulfate (Morphine Inj) 2 mg IV.PUSH Q4H PRN PRN Reason: Pain 3 to 6 Morphine Sulfate (Morphine Inj) 4 mg IV.PUSH Q3H PRN PRN Reason: Pain 7 to 10 Last Admin: 07/13/18 16:10 Dose: 4 mg Ondansetron HCl (Zofran Inj) 4 mg IV.PUSH Q6H PRN PRN Reason: NAUSEA OR VOMITING Last Admin: 07/13/18 16:20 Dose: 4 mg <Vern Jo - Last Filed: 07/13/18 18:57> Allergies Allergy/AdvReac Type Severity Reaction Status Date / Time hydromorphone Allergy Severe Itching Verified 07/12/18 17:29 ibuprofen Allergy Severe Nausea/Vomi Verified 07/12/18 17:29 ting ketorolac Allergy Severe Headache Verified 07/12/18 17:29 pregabalin Allergy Severe Dizziness Verified 07/12/18 17:29 tramadol Allergy Severe Headache Verified 07/12/18 17:29 butalbital Allergy Intermediate Headache Verified 07/12/18 17:29 caffeine Allergy Intermediate pt denies Verified 07/12/18 17:29 allergy sumatriptan Allergy Unknown Itching Verified 07/12/18 17:29 varenicline AdvReac Severe Dizziness Verified 07/12/18 17:29 prochlorperazine AdvReac Mild PANIC Verified 07/12/18 17:29 ATTACK CONTROL PILLS Allergy Severe Nausea/Vomi Uncoded 07/12/18 17:29 ting Home Medications Medication Instructions Recorded Confirmed Type albuterol sulfate 0.63 mg INHALATION Q4-6H PRN 06/14/18 07/12/18 History clonazepam 1 mg PO TID 06/14/18 07/12/18 History oxycodone-acetaminophen [Percocet] 1 tab PO Q6H PRN 06/14/18 07/12/18 History Exam Vital signs: Vital Signs 07/12/18 17:25 07/12/18 20:06 07/12/18 21:28 Temperature 100.0 F H Pulse Rate 117 H 90 Respiratory Rate 20 17 16 Blood Pressure 114/66 113/67 Pulse Oximetry 99 97 07/12/18 22:24 07/13/18 00:45 07/13/18 04:00 Temperature 99.4 F 99.6 F Pulse Rate 85 94 H 92 H Respiratory Rate 16 18 20 Blood Pressure 110/65 108/57 L 102/59 L Pulse Oximetry 97 96 97 07/13/18 08:00 Temperature 98.5 F Pulse Rate 91 H Respiratory Rate 16 Blood Pressure 99/63 L Pulse Oximetry 97 Intake & Output 07/12/18 07/13/18 07/13/18 18:59 06:59 18:59 Intake Total 3400 / 3400 200 / 200 Balance 3400 / 3400 200 / 200 Weight 77 kg 77 kg Intake: IV 3400 / 3400 200 / 200 NS Inj 1,000 ML @ 100 mls/hr IV 1000 / 1000 .CONT .Q10H JORGE Rx#:[id number] Cipro 400 MG/200 ML Inj 400 mg 200 / 200 200 / 200 In 200 ml @ 200 mls/hr IV.SIG Q12H JORGE Rx#:[id number] NS Inj 1,000 ML @ Wide Open IV. 1999 / 1999 SIG BOLUS ONE Rx#:[id number] Flagyl 500 MG Inj 100 ML @ 100 200 / 200 mls/hr IV.SIG Q8H JORGE Rx#: [id number] Oral 0 / 0 Other: # Voids 4 Date of Last Bowel Movement 07/13/18 07/13/18 # Bowel Movements 1 Weight On Admission 77 kg Narrative: GENERAL: Alert and awake 38-year-old female resting in bed in moderate acute distress secondary to pain. SKIN: Warm and dry. HEAD: Atraumatic. Normocephalic. EYES: Pupils equal and round. No scleral icterus. No injection or drainage. ENT: No nasal bleeding or discharge. Mucous membranes pink and moist. NECK: Trachea midline. CARDIOVASCULAR: Regular rate and rhythm. RESPIRATORY: No accessory muscle use. Clear to auscultation. Breath sounds equal bilaterally. GASTROINTESTINAL: Abdomen soft, moderate tenderness in the right lower pelvis. Nondistended. She has well-healed laparoscopic scars on her abdomen. No visible hernias. No CVA tenderness. MUSCULOSKELETAL: Extremities without clubbing, cyanosis, or edema. No obvious deformities. NEUROLOGICAL: Awake and alert. No obvious cranial nerve deficits. Motor grossly within normal limits. Five out of 5 muscle strength in the arms and legs. Normal speech. PSYCHIATRIC: Appropriate mood and affect; insight and judgment normal. <Zully Reveles - Last Filed: 07/13/18 16:13> Vital signs: Vital Signs 07/12/18 20:06 07/12/18 21:28 07/12/18 22:24 Temperature Pulse Rate 90 85 Respiratory Rate 17 16 16 Blood Pressure 113/67 110/65 Pulse Oximetry 97 97 07/13/18 00:45 07/13/18 04:00 07/13/18 08:00 Temperature 99.4 F 99.6 F 98.5 F Pulse Rate 94 H 92 H 91 H Respiratory Rate 18 20 16 Blood Pressure 108/57 L 102/59 L 99/63 L Pulse Oximetry 96 97 97 07/13/18 09:53 07/13/18 12:00 07/13/18 12:50 Temperature 97.5 F L Pulse Rate 54 L Respiratory Rate 18 16 18 Blood Pressure 137/84 Pulse Oximetry 96 07/13/18 16:00 07/13/18 16:12 Temperature 98.7 F Pulse Rate 89 Respiratory Rate 16 18 Blood Pressure 98/60 L Pulse Oximetry 98 Intake & Output 07/12/18 07/13/18 07/13/18 18:59 06:59 18:59 Intake Total 3400 / 3400 1100 / 1100 Balance 3400 / 3400 1100 / 1100 Weight 77 kg 77 kg Intake: IV 3400 / 3400 1100 / 1100 NS Inj 1,000 ML @ 100 mls/hr IV 1000 / 1000 800 / 800 .CONT .Q10H JORGE Rx#:[id number] Cipro 400 MG/200 ML Inj 400 mg 200 / 200 200 / 200 In 200 ml @ 200 mls/hr IV.SIG Q12H OJRGE Rx#:[id number] NS Inj 1,000 ML @ Wide Open IV. 1999 SIG BOLUS ONE Rx#:[id number] Flagyl 500 MG Inj 100 ML @ 100 200 / 200 100 / 100 mls/hr IV.SIG Q8H JORGE Rx#: [id number] Oral 0 / 0 Other: # Voids 4 Date of Last Bowel Movement 07/13/18 07/13/18 # Bowel Movements 1 Weight On Admission 77 kg <SandroVern - Last Filed: 07/13/18 18:57> Results - Labs 07/13/18 12:57 07/12/18 17:58 Laboratory Results CBC w Diff Slide review pending 07/12/18 17:58 WBC 16.6 th/mm3 (4.0-11.0) H 07/12/18 17:58 RBC 5.03 mil/mm3 (4.00-5.30) 07/12/18 17:58 Hgb 15.3 gm/dL (11.6-15.3) 07/12/18 17:58 Hct 46.3 % (35.0-46.0) H 07/12/18 17:58 MCV 92.2 fL (80.0-100.0) 07/12/18 17:58 MCH 30.5 pg (27.0-34.0) 07/12/18 17:58 MCHC 33.1 % (32.0-36.0) 07/12/18 17:58 RDW 13.7 % (11.6-17.2) 07/12/18 17:58 Plt Count 267 th/mm3 (150-450) 07/12/18 17:58 MPV 8.7 fL (7.0-11.0) 07/12/18 17:58 Neut % (Auto) 81.5 % (16.0-70.0) H 07/12/18 17:58 Lymph % (Auto) 8.3 % (9.0-44.0) L 07/12/18 17:58 [place] % (Auto) 4.7 % (0.0-8.0) 07/12/18 17:58 Eos % (Auto) 0.0 % (0.0-4.0) 07/12/18 17:58 Baso % (Auto) 5.5 % (0.0-2.0) H 07/12/18 17:58 Neut # (Auto) 13.5 th/mm3 (1.8-7.7) H 07/12/18 17:58 Lymph # (Auto) 1.4 th/mm3 (1.0-4.8) 07/12/18 17:58 [place] # (Auto) 0.8 th/mm3 (0.0-0.9) 07/12/18 17:58 Eos # (Auto) 0.0 th/mm3 (0.0-0.4) 07/12/18 17:58 Baso # (Auto) 0.9 th/mm3 (0.0-0.2) H 07/12/18 17:58 WBC Differential Manual diff final 07/12/18 17:58 Seg Neuts % (Manual) 85 % (16-70) H 07/12/18 17:58 Band Neuts % (Manual) 1 % (0-6) 07/12/18 17:58 Lymphocytes % (Manual) 6 % (9-44) L 07/12/18 17:58 Monocytes % (Manual) 8 % (0-8) 07/12/18 17:58 Abs Neuts (Manual) 14.3 th/mm3 (1.8-7.7) H 07/12/18 17:58 Differential Comment . 07/12/18 17:58 Platelet Estimate Normal (Normal) 07/12/18 17:58 Platelet Morphology Normal (Normal) 07/12/18 17:58 RBC Morphology Normal (Normal) 07/12/18 17:58 PT 10.4 sec (9.8-11.6) 07/12/18 17:58 INR 1.0 Ratio 07/12/18 17:58 APTT 29.4 sec (24.3-30.1) 07/12/18 17:58 Sodium 135 meq/L (136-145) L 07/12/18 17:58 Potassium 3.6 meq/L (3.5-5.1) 07/12/18 17:58 Chloride 106 meq/L (98-107) 07/12/18 17:58 Carbon Dioxide 21.5 meq/L (21.0-32.0) 07/12/18 17:58 Anion Gap 8 meq/L (5-15) 07/12/18 17:58 BUN 13 mg/dL (7-18) 07/12/18 17:58 Creatinine 0.82 mg/dL (0.50-1.00) 07/12/18 17:58 Estimated GFR 78 mL/min (>89) L 07/12/18 17:58 Random Glucose 96 mg/dL (74-106) 07/12/18 17:58 Lactic Acid 1.1 mmol/L (0.4-2.0) 07/12/18 19:50 Calcium 8.6 mg/dL (8.5-10.1) 07/12/18 17:58 Total Bilirubin 0.4 mg/dL (0.2-1.0) 07/12/18 17:58 AST 16 U/L (15-37) 07/12/18 17:58 ALT 19 U/L (10-53) 07/12/18 17:58 Alkaline Phosphatase 110 U/L (45-117) 07/12/18 17:58 Total Protein 8.3 g/dL (6.4-8.2) H 07/12/18 17:58 Albumin 3.8 g/dL (3.4-5.0) 07/12/18 17:58 Lipase 193 U/L (73-393) 07/12/18 17:58 Urine Color Yellow (Yellw/Straw) 07/12/18 17:58 Urine Clarity Clear (Clear) 07/12/18 17:58 Urine pH 5.5 (5.0-8.5) 07/12/18 17:58 Ur Specific Russell Greater/equal 1.030 (1.002-1.035) 07/12/18 17:58 Urine Protein Trace mg/dL (Neg-Trace) 07/12/18 17:58 Urine Glucose (UA) Negative mg/dL (Negative) 07/12/18 17:58 Urine Ketones Trace mg/dL (Negative) H 07/12/18 17:58 Urine Occult Blood Trace (Negative) 07/12/18 17:58 Urine Nitrate Positive (Negative) H 07/12/18 17:58 Urine Bilirubin Negative (Negative) 07/12/18 17:58 Urine Urobilinogen 0.2 mg/dL (Less than 2) 07/12/18 17:58 Ur Leukocyte Esterase Negative (Negative) 07/12/18 17:58 Urine WBC 0-5 /hpf (0-5) 07/12/18 17:58 Ur Squamous Epith Cells 6-10 /hpf (0-5) H 07/12/18 17:58 Urine Bacteria Many /hpf (None) H 07/12/18 17:58 Micro UA Comment Culture indicated 07/12/18 17:58 Urine Culture Comments Culture indicated 07/12/18 17:58 Impressions Abdomen/Pelvis CT 07/12/18 17:36 CONCLUSION: 1. Unremarkable bowel gas pattern. 2. Status post cholecystectomy. 3. Stable low-density cystic lesion in the dome of the right lobe of the liver. - Imaging CT scan - abdomen: image reviewed <Zully Reveles - Last Filed: 07/13/18 16:13> - Labs 07/13/18 12:57 07/12/18 17:58 Abnormal lab results 07/12/18 07/12/18 Range/Units 17:58 17:58 Seg Neuts % (Manual) 85 H (16-70) % Lymphocytes % (Manual) 6 L (9-44) % Abs Neuts (Manual) 14.3 H (1.8-7.7) th/mm3 Urine Ketones Trace H (Negative) mg/dL Urine Nitrate Positive H (Negative) Ur Squamous Epith Cells 6-10 H (0-5) /hpf Urine Bacteria Many H (None) /hpf All other labs normal. Laboratory Last Values CBC w Diff Slide review pending 07/12/18 17:58 WBC 16.6 th/mm3 (4.0-11.0) H 07/12/18 17:58 RBC 5.03 mil/mm3 (4.00-5.30) 07/12/18 17:58 Hgb 13.3 gm/dL (11.6-15.3) D 07/13/18 12:57 Hct 39.4 % (35.0-46.0) 07/13/18 12:57 MCV 92.2 fL (80.0-100.0) 07/12/18 17:58 MCH 30.5 pg (27.0-34.0) 07/12/18 17:58 MCHC 33.1 % (32.0-36.0) 07/12/18 17:58 RDW 13.7 % (11.6-17.2) 07/12/18 17:58 Plt Count 267 th/mm3 (150-450) 07/12/18 17:58 MPV 8.7 fL (7.0-11.0) 07/12/18 17:58 Neut % (Auto) 81.5 % (16.0-70.0) H 07/12/18 17:58 Lymph % (Auto) 8.3 % (9.0-44.0) L 07/12/18 17:58 [place] % (Auto) 4.7 % (0.0-8.0) 07/12/18 17:58 Eos % (Auto) 0.0 % (0.0-4.0) 07/12/18 17:58 Baso % (Auto) 5.5 % (0.0-2.0) H 07/12/18 17:58 Neut # (Auto) 13.5 th/mm3 (1.8-7.7) H 07/12/18 17:58 Lymph # (Auto) 1.4 th/mm3 (1.0-4.8) 07/12/18 17:58 [place] # (Auto) 0.8 th/mm3 (0.0-0.9) 07/12/18 17:58 Eos # (Auto) 0.0 th/mm3 (0.0-0.4) 07/12/18 17:58 Baso # (Auto) 0.9 th/mm3 (0.0-0.2) H 07/12/18 17:58 WBC Differential Manual diff final 07/12/18 17:58 Seg Neuts % (Manual) 85 % (16-70) H 07/12/18 17:58 Band Neuts % (Manual) 1 % (0-6) 07/12/18 17:58 Lymphocytes % (Manual) 6 % (9-44) L 07/12/18 17:58 Monocytes % (Manual) 8 % (0-8) 07/12/18 17:58 Abs Neuts (Manual) 14.3 th/mm3 (1.8-7.7) H 07/12/18 17:58 Differential Comment . 07/12/18 17:58 Platelet Estimate Normal (Normal) 07/12/18 17:58 Platelet Morphology Normal (Normal) 07/12/18 17:58 RBC Morphology Normal (Normal) 07/12/18 17:58 PT 10.4 sec (9.8-11.6) 07/12/18 17:58 INR 1.0 Ratio 07/12/18 17:58 APTT 29.4 sec (24.3-30.1) 07/12/18 17:58 Sodium 135 meq/L (136-145) L 07/12/18 17:58 Potassium 3.6 meq/L (3.5-5.1) 07/12/18 17:58 Chloride 106 meq/L (98-107) 07/12/18 17:58 Carbon Dioxide 21.5 meq/L (21.0-32.0) 07/12/18 17:58 Anion Gap 8 meq/L (5-15) 07/12/18 17:58 BUN 13 mg/dL (7-18) 07/12/18 17:58 Creatinine 0.82 mg/dL (0.50-1.00) 07/12/18 17:58 Estimated GFR 78 mL/min (>89) L 07/12/18 17:58 Random Glucose 96 mg/dL (74-106) 07/12/18 17:58 Lactic Acid 1.1 mmol/L (0.4-2.0) 07/12/18 19:50 Calcium 8.6 mg/dL (8.5-10.1) 07/12/18 17:58 Total Bilirubin 0.4 mg/dL (0.2-1.0) 07/12/18 17:58 AST 16 U/L (15-37) 07/12/18 17:58 ALT 19 U/L (10-53) 07/12/18 17:58 Alkaline Phosphatase 110 U/L (45-117) 07/12/18 17:58 Total Protein 8.3 g/dL (6.4-8.2) H 07/12/18 17:58 Albumin 3.8 g/dL (3.4-5.0) 07/12/18 17:58 Lipase 193 U/L (73-393) 07/12/18 17:58 Urine Color Yellow (Yellw/Straw) 07/12/18 17:58 Urine Clarity Clear (Clear) 07/12/18 17:58 Urine pH 5.5 (5.0-8.5) 07/12/18 17:58 Ur Specific Russell Greater/equal 1.030 (1.002-1.035) 07/12/18 17:58 Urine Protein Trace mg/dL (Neg-Trace) 07/12/18 17:58 Urine Glucose (UA) Negative mg/dL (Negative) 07/12/18 17:58 Urine Ketones Trace mg/dL (Negative) H 07/12/18 17:58 Urine Occult Blood Trace (Negative) 07/12/18 17:58 Urine Nitrate Positive (Negative) H 07/12/18 17:58 Urine Bilirubin Negative (Negative) 07/12/18 17:58 Urine Urobilinogen 0.2 mg/dL (Less than 2) 07/12/18 17:58 Ur Leukocyte Esterase Negative (Negative) 07/12/18 17:58 Urine WBC 0-5 /hpf (0-5) 07/12/18 17:58 Ur Squamous Epith Cells 6-10 /hpf (0-5) H 07/12/18 17:58 Urine Bacteria Many /hpf (None) H 07/12/18 17:58 Micro UA Comment Culture indicated 07/12/18 17:58 Urine Culture Comments Culture indicated 07/12/18 17:58 - Imaging CT scan - abdomen: report reviewed, image reviewed CT scan - pelvis: report reviewed, image reviewed Additional studies: ITS Impressions Abdomen/Pelvis CT 07/12/18 17:36 CONCLUSION: 1. Unremarkable bowel gas pattern. 2. Status post cholecystectomy. 3. Stable low-density cystic lesion in the dome of the right lobe of the liver. <Vern Jo - Last Filed: 07/13/18 18:57> Assessment and Plan - Assessment (1) Abdominal pain Code(s): R10.9 - Unspecified abdominal pain Status: Acute Onset Date: ~07/12 Qualifiers: Abdominal location: right lower quadrant Qualified Code(s): R10.31 - Right lower quadrant pain Plan: 38-year-old female with abdominal pain with associated nausea and vomiting -Patient reports maroon colored stools starting last night--we will consult GI -Deferred diet to GI/primary team -Defer pain control to primary team -Explained to the patient there is a low suspicion of appendicitis -Await recommendations from GI -We will continue to follow abdominal exam -Discussed possibility of diagnostic laparoscopy if no findings from GI -Discussed in detail with patient as well as Dr. Ramirez and Norah BARBOUR -Thank you for this consult; we will continue to follow - Plan Discussed Condition With: Dr. Sandro Kline Ms. Valentin <Zully Reveles - Last Filed: 07/13/18 16:13> - Assessment (1) Abdominal pain Code(s): R10.9 - Unspecified abdominal pain Status: Acute Onset Date: ~07/12 Qualifiers: Abdominal location: right lower quadrant Qualified Code(s): R10.31 - Right lower quadrant pain (2) Rectal bleeding Code(s): K62.5 - Hemorrhage of anus and rectum Status: Acute (3) GI bleed Code(s): K92.2 - Gastrointestinal hemorrhage, unspecified Status: Acute Onset Date: ~07/13/18 Qualifiers: GI bleed type/associated pathology: anorectal hemorrhage Qualified Code(s) : K62.5 - Hemorrhage of anus and rectum - Attending Attestation Minimal abdominal pain Reviewed CT scan Agree with colonoscopy If this is negative suggest [facility] consultation CONSULTATION NOTE FOR SURGICAL ATTENDING, DR. VERN JO I agree with above assessment and plan. The exam, history, and the medical decision-making described in the above note were completed with the assistance of the mid-level provider. I reviewed and agree with the findings presented. I attest that I had a [id number] encounter with the patient on the same day, and personally performed and documented my assessment and findings in the medical record. The following services were provided during this hospital visit: Chart data review, vital sign assessments/reviewing monitor data Review of consultations notes if present. Medication orders/review and/or management Ordering and/or reviewing lab tests Ordering and/or interpreting/reviewing x-rays and/or diagnostic studies Care of the patient and discussion of the patient with the care team Documentation time To help prompt me to consider important information that might be impacting today's encounter and assessment, Information from prior notes written by myself or my colleagues may have been "brought forward/copy and pasted" into today's note. <Vern Jo - Last Filed: 07/13/18 18:57>
--- NOTE | 2018-07-13 10:49 | P.CONGI ---
History of Present Illness Consult date: 07/13/18 Consult reason: Rectal bleeding Chief complaint: R/O early appedicitis,intractable nausea and vomit History of Present Illness: This is a 38 yo F who presented to [facility] last night with complaints of RLQ abdominal pain, she was transferred to the main campus for surgical evaluation due to possibility of appendicitis. CT abdomen not consistent with appendicitis, but suspicion was due to leukocytosis and clinical findings. Surgery evaluated pt and has no surgical plans at this time, they have consulted our service to evaluate reports of rectal bleeding. Pt reports RLQ abdominal pain began suddenly at 8am yesterday, states pain is constant with intermittent episodes of increased intensity. Describes pain as sharp, stabbing and aching. Pain is worse with movement and she states the only thing that makes it noticeably better is pain medication. Also complaining of nausea and vomiting, denies hematemesis and coffee ground emesis. She began having BRB in her stools this morning, examined the stool in the toilet which is BRB with mucous. States four episodes since 5 am this morning. Denies history of GIB. States last colonoscopy was 8 years ago and exam was normal. Also reports last EGD was a few years ago, and findings consistent with GERD. Pt reports her GERD is not well controlled, some improvement after previous cholecystectomy but symptoms are still severe. Denies unintentional weight loss. She reports ETOH about once a months. Smokes 1 PPD. Denies NSAID use. Denies family history of UC, Crohns, and colon cancer. <Norah Hickey - Last Filed: 07/13/18 10:50> Review of Systems Constitutional: Denies weight loss Gastrointestinal: Reports abdominal pain, Reports bright, red blood in stools, Reports loose stools, Reports nausea, Reports vomiting, Denies black, tarry stools, Denies vomiting blood <Norah Hickey - Last Filed: 07/13/18 10:50> PMFSH - History History Provided By: Patient - Medical History Medical History: Medical History (Last Updated 07/13/18 @ 09:58 by KM Hall) H/O: hysterectomy History of hysterectomy History of anxiety History of asthma History of depression History of kidney stones History of right shoulder fracture Hx of chronic arthritis Hx of migraines - Surgical History Surgical History: Surgical History (Last Reviewed 07/13/18 @ 09:57 by KM Hall) History of back surgery History of knee replacement procedure of right knee Hx of cholecystectomy - Family History Family History: Family History (Last Updated 07/13/18 @ 09:17 by Lilliana Ramirez MD) Other CAD (coronary artery disease) - Tobacco History Second Hand Smoke Exposure: Yes Tobacco Use In Past 30 Days: Yes Smoking Status: Current every day smoker Tobacco Type: Cigarettes Packs Per Day: 1 Cigarettes Per Day: 0 - Alcohol History How Often Do You Have a Drink Containing Alcohol: Monthly or less - Substance Use History Substance History: No History of Abuse - Travel History Recent Travel in the [place] Within the Last 8 Weeks: No Recent Travel Out of the Country Within the Last 8 Weeks: No - Immunization History Tetanus Immunization: Unsure Hx Influenza Vaccine This Season: No <Norah Hickey - Last Filed: 07/13/18 10:50> - Medical History Medical History: Medical History (Last Updated 07/13/18 @ 09:58 by KM Hall) H/O: hysterectomy History of hysterectomy History of anxiety History of asthma History of depression History of kidney stones History of right shoulder fracture Hx of chronic arthritis Hx of migraines - Surgical History Surgical History: Surgical History (Last Reviewed 07/13/18 @ 09:57 by KM Hall) History of back surgery History of knee replacement procedure of right knee Hx of cholecystectomy - Family History Family History: Family History (Last Updated 07/13/18 @ 09:17 by Lilliana Ramirez MD) Other CAD (coronary artery disease) <Zak Ko - Last Filed: 07/14/18 11:12> Medications and Allergies Active Medications: Active Medications Al Hydroxide/Mg Hydroxide (Milk Of Magnrichard Liq) 30 ml PO Q12H PRN PRN Reason: Mild Constipation Sodium Chloride (Ns Inj) 1,000 mls @ 100 mls/hr IV.CONT .Q10H [facility] Last Admin: 07/13/18 05:52 Dose: 100 mls/hr Ciprofloxacin/Dextrose (Cipro 400 Mg/200 Ml Inj) 400 mg in 200 mls @ 200 mls/ hr IV.SIG Q12H [facility] Last Infusion: 07/13/18 09:26 Dose: Infused Metronidazole/Sodium Chloride (Flagyl 500 Mg Inj) 100 mls @ 100 mls/hr IV.SIG Q8H [facility] Last Infusion: 07/13/18 06:55 Dose: Infused Morphine Sulfate (Morphine Inj) 2 mg IV.PUSH Q4H PRN PRN Reason: Pain 3 to 6 Morphine Sulfate (Morphine Inj) 4 mg IV.PUSH Q4H PRN PRN Reason: Pain 7 to 10 Last Admin: 07/13/18 09:51 Dose: 4 mg Ondansetron HCl (Zofran Inj) 4 mg IV.PUSH Q6H PRN PRN Reason: NAUSEA OR VOMITING Last Admin: 07/13/18 05:51 Dose: 4 mg <Norah Hickey - Last Filed: 07/13/18 10:50> Active Medications: Active Medications Al Hydroxide/Mg Hydroxide (Milk Of Magnesia Liq) 30 ml PO Q12H PRN PRN Reason: Mild Constipation Chlorhexidine Gluconate (Chlorhexidine 2% Cloth) 3 pack 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 [facility] Stop: 07/17/18 04:20 Sodium Chloride (Ns Inj) 1,000 mls @ 100 mls/hr IV.CONT .Q10H [facility] Last Admin: 07/14/18 06:16 Dose: Not Given Ciprofloxacin/Dextrose (Cipro 400 Mg/200 Ml Inj) 400 mg in 200 mls @ 200 mls/ hr IV.SIG Q12H [facility] Last Admin: 07/14/18 07:50 Dose: 200 mls/hr Metronidazole/Sodium Chloride (Flagyl 500 Mg Inj) 100 mls @ 100 mls/hr IV.SIG Q8H [facility] Last Admin: 07/14/18 04:57 Dose: 200 mls/hr Lactated Ringer's (Lr 1000 Ml Inj) 1,000 mls @ 30 mls/hr IV.SIG .Q24H [facility] Stop: 07/17/18 04:20 Last Admin: 07/14/18 06:18 Dose: Not Given Sodium Chloride (Ns Inj) 500 mls @ 30 mls/hr IV.SIG .Q10H [facility] Stop: 07/17/18 04:20 Metoprolol Tartrate (Lopressor) 25 mg PO [employer]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 [facility] Stop: 07/17/18 04:20 Morphine Sulfate (Morphine Inj) 2 mg IV.PUSH Q4H PRN PRN Reason: Pain 3 to 6 Morphine Sulfate (Morphine Inj) 4 mg IV.PUSH Q3H PRN PRN Reason: Pain 7 to 10 Last Admin: 07/14/18 07:50 Dose: 4 mg Ondansetron HCl (Zofran Inj) 4 mg IV.PUSH Q6H PRN PRN Reason: NAUSEA OR VOMITING Last Admin: 07/14/18 04:57 Dose: 4 mg Povidone Iodine (Betadine 5% Antisepsis Kit) 1 applicatio EACH 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 [facility] Stop: 07/17/18 04:20 <Zak Ko - Last Filed: 07/14/18 11:12> Allergies Allergy/AdvReac Type Severity Reaction Status Date / Time hydromorphone Allergy Severe Itching Verified 07/12/18 17:29 ibuprofen Allergy Severe Nausea/Vomi Verified 07/12/18 17:29 ting ketorolac Allergy Severe Headache Verified 07/12/18 17:29 pregabalin Allergy Severe Dizziness Verified 07/12/18 17:29 tramadol Allergy Severe Headache Verified 07/12/18 17:29 butalbital Allergy Intermediate Headache Verified 07/12/18 17:29 caffeine Allergy Intermediate pt denies Verified 07/12/18 17:29 allergy sumatriptan Allergy Unknown Itching Verified 07/12/18 17:29 varenicline AdvReac Severe Dizziness Verified 07/12/18 17:29 prochlorperazine AdvReac Mild PANIC Verified 07/12/18 17:29 ATTACK CONTROL PILLS Allergy Severe Nausea/Vomi Uncoded 07/12/18 17:29 ting Home Medications Medication Instructions Recorded Confirmed Type albuterol sulfate 0.63 mg INHALATION Q4-6H PRN 06/14/18 07/12/18 History clonazepam 1 mg PO TID 06/14/18 07/12/18 History oxycodone-acetaminophen [Percocet] 1 tab PO Q6H PRN 06/14/18 07/12/18 History Exam Vital signs: Vital Signs 07/12/18 17:25 07/12/18 20:06 07/12/18 21:28 Temperature 100.0 F H Pulse Rate 117 H 90 Respiratory Rate 20 17 16 Blood Pressure 114/66 113/67 Pulse Oximetry 99 97 07/12/18 22:24 07/13/18 00:45 07/13/18 04:00 Temperature 99.4 F 99.6 F Pulse Rate 85 94 H 92 H Respiratory Rate 16 18 20 Blood Pressure 110/65 108/57 L 102/59 L Pulse Oximetry 97 96 97 07/13/18 08:00 07/13/18 09:53 Temperature 98.5 F Pulse Rate 91 H Respiratory Rate 16 18 Blood Pressure 99/63 L Pulse Oximetry 97 Intake & Output 07/12/18 07/13/18 07/13/18 18:59 06:59 18:59 Intake Total 3400 / 3400 200 / 200 Balance 3400 / 3400 200 / 200 Weight 77 kg 77 kg Intake: IV 3400 / 3400 200 / 200 NS Inj 1,000 ML @ 100 mls/hr IV 1000 / 1000 .CONT .Q10H [facility] Rx#:[id number] Cipro 400 MG/200 ML Inj 400 mg 200 / 200 200 / 200 In 200 ml @ 200 mls/hr IV.SIG Q12H [facility] Rx#:[id number] NS Inj 1,000 ML @ Wide Open IV. 1999 / 1999 SIG BOLUS ONE Rx#:[id number] Flagyl 500 MG Inj 100 ML @ 100 200 / 200 mls/hr IV.SIG Q8H [facility]OR[facility] Rx#: [id number] Oral 0 / 0 Other: # Voids 4 Date of Last Bowel Movement 07/13/18 07/13/18 # Bowel Movements 1 Weight On Admission 77 kg - Constitutional no acute distress - Routine HEENT Exam Head: Present: normocephalic, atraumatic - Routine Respiratory Exam Absent: accessory muscle use - Routine Abdominal Exam Present: soft, normoactive bowel sounds, tenderness (mild RLQ tenderness ). Absent: distended - Routine Skin Exam Present: dry, warm - Routine Neurological Exam Present: alert, oriented X3 <Norah Hickey - Last Filed: 07/13/18 10:50> Vital signs: Vital Signs 07/13/18 12:00 07/13/18 12:50 07/13/18 16:00 Temperature 97.5 F L 98.7 F Pulse Rate 54 L 89 Respiratory Rate 16 18 16 Blood Pressure 137/84 98/60 L Pulse Oximetry 96 98 07/13/18 16:12 07/13/18 20:00 07/13/18 23:30 Temperature 100.4 F H Pulse Rate 88 Respiratory Rate 18 20 15 Blood Pressure 108/66 Pulse Oximetry 97 07/14/18 00:00 07/14/18 04:00 07/14/18 05:30 Temperature 99.1 F 98.8 F Pulse Rate 91 H 79 Respiratory Rate 20 20 15 Blood Pressure 102/54 L 107/57 L Pulse Oximetry 96 99 07/14/18 07:49 07/14/18 07:52 07/14/18 11:00 Temperature 98.2 F 98.4 F Pulse Rate 80 88 Respiratory Rate 18 18 20 Blood Pressure 110/61 117/80 Pulse Oximetry 97 98 Intake & Output 07/13/18 07/14/18 07/14/18 18:59 06:59 18:59 Intake Total 1580 / 1580 300 / 300 Balance 1580 / 1580 300 / 300 Weight 77 kg Intake: IV 1100 / 1100 300 / 300 NS Inj 1,000 ML @ 100 mls/hr IV 800 / 800 .CONT .Q10H [facility] Rx#:[id number] Cipro 400 MG/200 ML Inj 400 mg 200 / 200 200 / 200 In 200 ml @ 200 mls/hr IV.SIG Q12H [facility] Rx#:[id number] Flagyl 500 MG Inj 100 ML @ 100 100 / 100 100 / 100 mls/hr IV.SIG Q8H [facility] Rx#: [id number] Oral 480 / 480 0 / 0 Other: # Voids 2 4 Date of Last Bowel Movement 07/13/18 07/13/18 07/14/18 # Bowel Movements 1 <Hemaidan,Ammar - Last Filed: 07/14/18 11:12> Results - Labs CBC & Chem 7: 07/12/18 17:58 07/12/18 17:58 Labs: Laboratory Results - last 24 hr 07/12/18 07/12/18 07/12/18 17:58 17:58 17:58 CBC w Diff Slide review pending WBC 16.6 H RBC 5.03 Hgb 15.3 Hct 46.3 H MCV 92.2 MCH 30.5 MCHC 33.1 RDW 13.7 Plt Count 267 MPV 8.7 Neut % (Auto) 81.5 H Lymph % (Auto) 8.3 L [place] % (Auto) 4.7 Eos % (Auto) 0.0 Baso % (Auto) 5.5 H Neut # (Auto) 13.5 H Lymph # (Auto) 1.4 [place] # (Auto) 0.8 Eos # (Auto) 0.0 Baso # (Auto) 0.9 H WBC Differential Manual diff final Seg Neuts % (Manual) 85 H Band Neuts % (Manual) 1 Lymphocytes % (Manual) 6 L Monocytes % (Manual) 8 Abs Neuts (Manual) 14.3 H Differential Comment . Platelet Estimate Normal Platelet Morphology Normal RBC Morphology Normal PT 10.4 INR 1.0 APTT 29.4 Sodium 135 L Potassium 3.6 Chloride 106 Carbon Dioxide 21.5 Anion Gap 8 BUN 13 Creatinine 0.82 Estimated GFR 78 L Random Glucose 96 Lactic Acid Calcium 8.6 Total Bilirubin 0.4 AST 16 ALT 19 Alkaline Phosphatase 110 Total Protein 8.3 H Albumin 3.8 Lipase 193 Urine Color Urine Clarity Urine pH Ur Specific [place] Urine Protein Urine Glucose (UA) Urine Ketones Urine Occult Blood Urine Nitrate Urine Bilirubin Urine Urobilinogen Ur Leukocyte Esterase Urine WBC Ur Squamous Epith Cells Urine Bacteria Micro UA Comment Urine Culture Comments 07/12/18 07/12/18 17:58 19:50 CBC w Diff WBC RBC Hgb Hct MCV MCH MCHC RDW Plt Count MPV Neut % (Auto) Lymph % (Auto) [place] % (Auto) Eos % (Auto) Baso % (Auto) Neut # (Auto) Lymph # (Auto) [place] # (Auto) Eos # (Auto) Baso # (Auto) WBC Differential Seg Neuts % (Manual) Band Neuts % (Manual) Lymphocytes % (Manual) Monocytes % (Manual) Abs Neuts (Manual) Differential Comment Platelet Estimate Platelet Morphology RBC Morphology PT INR APTT Sodium Potassium Chloride Carbon Dioxide Anion Gap BUN Creatinine Estimated GFR Random Glucose Lactic Acid 1.1 Calcium Total Bilirubin AST ALT Alkaline Phosphatase Total Protein Albumin Lipase Urine Color Yellow Urine Clarity Clear Urine pH 5.5 Ur Specific [place] Greater/equal 1.030 Urine Protein Trace Urine Glucose (UA) Negative Urine Ketones Trace H Urine Occult Blood Trace Urine Nitrate Positive H Urine Bilirubin Negative Urine Urobilinogen 0.2 Ur Leukocyte Esterase Negative Urine WBC 0-5 Ur Squamous Epith Cells 6-10 H Urine Bacteria Many H Micro UA Comment Culture indicated Urine Culture Comments Culture indicated - Imaging Impressions Abdomen/Pelvis CT 07/12/18 17:36 CONCLUSION: 1. Unremarkable bowel gas pattern. 2. Status post cholecystectomy. 3. Stable low-density cystic lesion in the dome of the right lobe of the liver. <Norah Hickey - Last Filed: 07/13/18 10:50> - Labs CBC & Chem 7: 07/14/18 03:04 07/14/18 03:04 Labs: Laboratory Results - last 24 hr 07/12/18 07/13/18 07/13/18 17:58 12:57 23:26 WBC 7.4 RBC 3.97 L Hgb 13.3 D 12.2 Hct 39.4 36.8 MCV 92.8 MCH 30.8 MCHC 33.2 RDW 14.5 Plt Count 156 D MPV 9.0 Neut % (Auto) 81.5 H Lymph % (Auto) 13.2 [place] % (Auto) 4.8 Eos % (Auto) 0.2 Baso % (Auto) 0.3 Neut # (Auto) 6.0 Lymph # (Auto) 1.0 [place] # (Auto) 0.4 Eos # (Auto) 0.0 Baso # (Auto) 0.0 WBC Differential . Differential Comment Auto diff final Sodium Potassium Chloride Carbon Dioxide Anion Gap BUN Creatinine Estimated GFR Random Glucose Calcium Urine Color Yellow Urine Clarity Clear Urine pH 5.5 Ur Specific [place] Greater/equal 1.030 Urine Protein Trace Urine Glucose (UA) Negative Urine Ketones Trace H Urine Occult Blood Trace Urine Nitrate Positive H Urine Bilirubin Negative Urine Urobilinogen 0.2 Ur Leukocyte Esterase Negative Urine WBC 0-5 Ur Squamous Epith Cells 6-10 H Urine Bacteria Many H Micro UA Comment Culture indicated Urine Culture Comments Culture indicated 07/14/18 07/14/18 03:04 03:04 WBC RBC Hgb 12.5 Hct 37.2 MCV MCH MCHC RDW Plt Count MPV Neut % (Auto) Lymph % (Auto) [place] % (Auto) Eos % (Auto) Baso % (Auto) Neut # (Auto) Lymph # (Auto) [place] # (Auto) Eos # (Auto) Baso # (Auto) WBC Differential Differential Comment Sodium 139 Potassium 3.5 Chloride 110 H Carbon Dioxide 19.1 L Anion Gap 10 BUN 4 L Creatinine 0.56 Estimated GFR Greater than 89 Random Glucose 81 Calcium 7.5 L D Urine Color Urine Clarity Urine pH Ur Specific [place] Urine Protein Urine Glucose (UA) Urine Ketones Urine Occult Blood Urine Nitrate Urine Bilirubin Urine Urobilinogen Ur Leukocyte Esterase Urine WBC Ur Squamous Epith Cells Urine Bacteria Micro UA Comment Urine Culture Comments <Zak Ko - Last Filed: 07/14/18 11:12> Assessment and Plan - Plan Assessment: - Rectal bleeding Pt presented last night with RLQ abdominal pain that began at 8 am, constant with intermittent episodes of worsening intensity, described as sharp, stabbing and aching. Worse with movement, better with pain meds. GS consult placed to evaluate for possible appendicitis, CT negative but concerns because of clinical exam and leukocytosis. Seen by GS no plans for surgery at this time. Pt now complaining of BRB in stool that began at 5 am this morning, 4 episodes. Pt reports prior to this having loose stools, about 2 a day, states this is normal for her. CT abdomen and pelvis W IV contrast (07/12) Unremarkable bowel gas pattern. Status post cholecystectomy. Stable low-density cystic lesion in the dome of the right lobe of the liver. Pt reports last colonoscopy 8 years ago, exam normal. States EGD a few years ago, findings consistent with GERD. Denies family history of UC, Crohns and colon cancer - GERD- pt reports previous cholecystectomy helped some but that symptoms are still severe. Plan: EGD and colonoscopy tomorrow Obtain consent Clear liquids today Golytely prep NPO after MN H/H q12 hrs Stool studies Antiemetics PRN Pain control Further recommendations to follow Pt has been seen and examined by myself and Dr. Ko and this note is written on his behalf <Norah Hickey - Last Filed: 07/13/18 10:50> - Plan Patient was seen and examined, agree with above note, we will plan on upper endoscopy and colonoscopy, this could be inflammatory bowel disease, ischemia, other etiologies such as malignancy less likely <Zak Ko - Last Filed: 07/14/18 11:12>
[2018-07-13 13:40] LABS: Hematocrit 39.4 % (35.0-46.0); Hemoglobin 13.3 gm/dL (11.6-15.3)
[2018-07-13] MEDS ORDERED: PEG 3350/E-Lyte Soln 4000 ML Bottle PO ONE (16:00)
[2018-07-13 23:47] LABS: Baso % (Auto) 0.3 % (0.0-2.0); Eos % (Auto) 0.2 % (0.0-4.0); Hematocrit 36.8 % (35.0-46.0); Hemoglobin 12.2 gm/dL (11.6-15.3); Lymph % (Auto) 13.2 % (9.0-44.0); Mean Corpuscular HGB Conc 33.2 % (32.0-36.0); Mean Corpuscular Hemoglobin 30.8 pg (27.0-34.0); Mean Corpuscular Volume 92.8 fL (80.0-100.0); Mono # (Auto) 0.4 th/mm3 (0.0-0.9); Mono % (Auto) 4.8 % (0.0-8.0); Neut % (Auto) 81.5 % (16.0-70.0); Platelet Count 156 th/mm3 (150-450); Red Blood Count 3.97 mil/mm3 (4.00-5.30); Red Cell Distribution Width 14.5 % (11.6-17.2); White Blood Count 7.4 th/mm3 (4.0-11.0)
[2018-07-14] MEDS: Morphine Inj 4 MG/ML Vial IV.PUSH PRN ×8 (01:50→23:27)
[2018-07-14 04:17] LABS: Hematocrit 37.2 % (35.0-46.0); Hemoglobin 12.5 gm/dL (11.6-15.3)
[2018-07-14] MEDS ORDERED: Metoprolol Tartrate 25 MG Tablet PO SCH (04:30)
[2018-07-14] MEDS ORDERED: Chlorhexidine Gluconate 2% 1 Pack (2 Cloths) TOPICAL SCH (04:30)
[2018-07-14 04:34] LABS: Anion Gap 10 meq/L (5-15); Blood Urea Nitrogen 4 mg/dL (7-18); Calcium 7.5 mg/dL (8.5-10.1); Carbon Dioxide 19.1 meq/L (21.0-32.0); Chloride 110 meq/L (98-107); Glomerular Filtration Rate Greater Than 89 mL/min (>89); Glucose,Random 81 mg/dL (74-106); Potassium 3.5 meq/L (3.5-5.1); Sodium 139 meq/L (136-145)
[2018-07-14] MEDS ORDERED: Sodium Chlor 0.9% Inj 500 ML IV.SIG SCH (05:00)
[2018-07-14] MEDS: Sod Chloride 0.9% Inj 1,000 ML IV.CONT SCH ×2 (06:16→17:51)
[2018-07-14] MEDS: Ciprofloxacin 400 MG/200 ML 400 MG/200 ML PIGGYBACK IV.SIG SCH ×2 (07:50→20:47)
--- NOTE | 2018-07-14 09:13 | P.PNIM ---
Subjective Interval history: Patient stated she feels a lot better. She is very anxious to go home today. She stated she is withdrawing from nicotine. She stated she cannot take any type of nicotine replacement and needs to go home. She stated after she saw me yesterday she had about 2 more BM with small amount of blood. Denied any N/V and remains afebrile. Physical Exam Vital signs: Vital Signs 07/13/18 09:53 07/13/18 12:00 07/13/18 12:50 Temperature 97.5 F L Pulse Rate 54 L Respiratory Rate 18 16 18 Blood Pressure 137/84 Pulse Oximetry 96 07/13/18 16:00 07/13/18 16:12 07/13/18 20:00 Temperature 98.7 F 100.4 F H Pulse Rate 89 88 Respiratory Rate 16 18 20 Blood Pressure 98/60 L 108/66 Pulse Oximetry 98 97 07/13/18 23:30 07/14/18 00:00 07/14/18 04:00 Temperature 99.1 F 98.8 F Pulse Rate 91 H 79 Respiratory Rate 15 20 20 Blood Pressure 102/54 L 107/57 L Pulse Oximetry 96 99 07/14/18 05:30 07/14/18 07:49 07/14/18 07:52 Temperature 98.2 F Pulse Rate 80 Respiratory Rate 15 18 18 Blood Pressure 110/61 Pulse Oximetry 97 Intake & Output 07/13/18 07/14/18 07/14/18 18:59 06:59 18:59 Intake Total 1580 / 1580 300 / 300 Balance 1580 / 1580 300 / 300 Weight 77 kg Intake: IV 1100 / 1100 300 / 300 NS Inj 1,000 ML @ 100 mls/hr IV 800 / 800 .CONT .Q10H [facility] Rx#:[id number] Cipro 400 MG/200 ML Inj 400 mg 200 / 200 200 / 200 In 200 ml @ 200 mls/hr IV.SIG Q12H [facility] Rx#:[id number] Flagyl 500 MG Inj 100 ML @ 100 100 / 100 100 / 100 mls/hr IV.SIG Q8H [facility] Rx#: [id number] Oral 480 / 480 0 / 0 Other: # Voids 2 4 Date of Last Bowel Movement 07/13/18 07/13/18 # Bowel Movements 1 - Constitutional no acute distress - Routine HEENT Exam Head: Present: normocephalic, atraumatic - Routine Neck Exam Present: supple, full ROM - Routine Respiratory Exam Present: CTA bilaterally - Routine Cardiovascular Exam Present: RRR, S1, S2 - Routine Abdominal Exam Present: soft, normoactive bowel sounds Comments: no TTP. no peritoneal signs. - Routine Extremities Exam Present: edema - Routine Neurological Exam Present: alert, oriented X3 - Routine Psychiatric Exam Present: normal affect Results - Labs CBC & Chem 7: 07/14/18 03:04 07/14/18 03:04 Laboratory Results - last 24 hr 07/12/18 07/13/18 07/13/18 17:58 12:57 23:26 WBC 7.4 RBC 3.97 L Hgb 13.3 D 12.2 Hct 39.4 36.8 MCV 92.8 MCH 30.8 MCHC 33.2 RDW 14.5 Plt Count 156 D MPV 9.0 Neut % (Auto) 81.5 H Lymph % (Auto) 13.2 [place] % (Auto) 4.8 Eos % (Auto) 0.2 Baso % (Auto) 0.3 Neut # (Auto) 6.0 Lymph # (Auto) 1.0 [place] # (Auto) 0.4 Eos # (Auto) 0.0 Baso # (Auto) 0.0 WBC Differential . Differential Comment Auto diff final Sodium Potassium Chloride Carbon Dioxide Anion Gap BUN Creatinine Estimated GFR Random Glucose Calcium Urine Color Yellow Urine Clarity Clear Urine pH 5.5 Ur Specific [place] Greater/equal 1.030 Urine Protein Trace Urine Glucose (UA) Negative Urine Ketones Trace H Urine Occult Blood Trace Urine Nitrate Positive H Urine Bilirubin Negative Urine Urobilinogen 0.2 Ur Leukocyte Esterase Negative Urine WBC 0-5 Ur Squamous Epith Cells 6-10 H Urine Bacteria Many H Micro UA Comment Culture indicated Urine Culture Comments Culture indicated 07/14/18 07/14/18 03:04 03:04 WBC RBC Hgb 12.5 Hct 37.2 MCV MCH MCHC RDW Plt Count MPV Neut % (Auto) Lymph % (Auto) [place] % (Auto) Eos % (Auto) Baso % (Auto) Neut # (Auto) Lymph # (Auto) [place] # (Auto) Eos # (Auto) Baso # (Auto) WBC Differential Differential Comment Sodium 139 Potassium 3.5 Chloride 110 H Carbon Dioxide 19.1 L Anion Gap 10 BUN 4 L Creatinine 0.56 Estimated GFR Greater than 89 Random Glucose 81 Calcium 7.5 L D Urine Color Urine Clarity Urine pH Ur Specific [place] Urine Protein Urine Glucose (UA) Urine Ketones Urine Occult Blood Urine Nitrate Urine Bilirubin Urine Urobilinogen Ur Leukocyte Esterase Urine WBC Ur Squamous Epith Cells Urine Bacteria Micro UA Comment Urine Culture Comments Microbiology 07/12/18 17:58 Clean Catch Urine Urine Culture - Preliminary gram negative rods 07/12/18 19:50 Blood - Peripheral Aerobic Blood Culture - Preliminary No growth in 1 day 07/12/18 19:50 Blood - Peripheral Anaerobic Blood Culture - Preliminary gram positive cocci 07/12/18 19:56 Blood - Peripheral Aerobic Blood Culture - Preliminary No growth in 1 day 07/12/18 19:56 Blood - Peripheral Anaerobic Blood Culture - Preliminary No growth in 1 day Assessment and Plan - Assessment (1) Abdominal pain Code(s): R10.9 - Unspecified abdominal pain Status: Acute Onset Date: ~07/12 Plan: surgery stated no surgical indication. patient on cipro and flagyl GI consulted and patient will have EGD and colonoscopy today. (2) GI bleed Code(s): K92.2 - Gastrointestinal hemorrhage, unspecified Status: Acute Plan: improved. H/H trending and stable. Initially patient looked hemo concentrated. H went from 15.3 to 13.3 to 12.2 to 12.5. patient will have EGD and colonoscopy today. (3) UTI (urinary tract infection) Code(s): N39.0 - Urinary tract infection, site not specified Status: Acute Plan: urine cultures grew gram negative rods. asymptomatic but does have N/V and abdominal pain that improved. continue with Cipro pending culture. (4) Leukocytosis Code(s): D72.829 - Elevated white blood cell count, unspecified Status: Acute Plan: reviewed and looks more due to hemoconcentration. resolved quickly. patient does not look toxic or ill. 1/4 blood cultures grew gram positive cocci and clusters. most likely a contaminant. patient clinically doing better with no coverage. continue to monitor. (5) Tobacco abuse Code(s): Z72.0 - Tobacco use Status: Acute Plan: patient stated she cannot take any supplements. stated that she is withdrawal and needs to go home. education given on nicotine replacement and she continues to refuse. - Plan Discussed Condition With: patient and her nurse. Discharge Planning: patient very anxious to go home today. if cleared by Gi and patient able to tolerated PO intake can be d/c home. patient told she needs to be available for any phone called for final cultures. she was also told any worsening signs or fevers she has to return to ED VLAD. (1) Abdominal pain Qualifiers: Abdominal location: right lower quadrant Qualified Code(s): R10.31 - Right lower quadrant pain (2) GI bleed Qualifiers: GI bleed type/associated pathology: anorectal hemorrhage Qualified Code(s): K62.5 - Hemorrhage of anus and rectum
--- NOTE | 2018-07-14 11:16 | P.PCN ---
Procedure: THANK YOU FOR THE REFERRAL Indication; abdominal pain, rectal bleeding Procedure Performed; upper endoscopy: With biopsy Colonoscopy: With biopsy After informing the patient about procedure and possible complications consent was signed. history and physical were updated. Patient was taken to the procedure room and placed in position. Time out was completed. Adequate sedation was performed by anesthesia provider. Upper Endoscopy, the scope was placed in the mouth advanced under video guide to the second portion of the duodenum, then the scope was withdrawal to the stomach and retro-flexion was performed, the scope was withdrawal to the esophagus then out of the mouth without any immediate complication . Colonoscopy, rectal exam was performed the scope was placed in the rectum advanced under video guide to the cecum which was identified by ileo-cecal valve and appendiceal orifice, then the scope withdrawal slowly with examination of the mucosa to the rectum and retro-flexion was performed, the scope was withdrawal without any immediate complication Findings; Terminal ileum : Normal Colon: Severe thickened ulcerated folds in the descending colon consistent with ischemic colitis biopsy was done, the remaining of the colon is normal Rectum: Normal Esophagus: Normal Stomach: Moderate gastritis biopsy was done from the antrum Duodenum: Normal I talked to the radiologist Dr. Guadarrama he reviewed the CT scan, he stated that the vessels are wide open no compromised mesenteric vessels, he suggested that this could be small vessel disease causing the ischemia could be in combination of constipation and straining Recommendations; 1- Supportive care 2- ok to transfer to recovery area then discharge per protocol 3-clear liquid diet 4-Hemoccult on a yearly basis by primary care physician 5-colonoscopy 2 month 6- EGD as needed 7-Protonix 40 mg daily 8-avoid straining and constipation
--- NOTE | 2018-07-14 11:18 | P.PNGI ---
Subjective Interval history: Patient feeling better, less abdominal pain, no nausea or vomiting today, she tolerated prep well Physical Exam Vital signs: Vital Signs 07/13/18 12:00 07/13/18 12:50 07/13/18 16:00 Temperature 97.5 F L 98.7 F Pulse Rate 54 L 89 Respiratory Rate 16 18 16 Blood Pressure 137/84 98/60 L Pulse Oximetry 96 98 07/13/18 16:12 07/13/18 20:00 07/13/18 23:30 Temperature 100.4 F H Pulse Rate 88 Respiratory Rate 18 20 15 Blood Pressure 108/66 Pulse Oximetry 97 07/14/18 00:00 07/14/18 04:00 07/14/18 05:30 Temperature 99.1 F 98.8 F Pulse Rate 91 H 79 Respiratory Rate 20 20 15 Blood Pressure 102/54 L 107/57 L Pulse Oximetry 96 99 07/14/18 07:49 07/14/18 07:52 07/14/18 11:00 Temperature 98.2 F 98.4 F Pulse Rate 80 88 Respiratory Rate 18 18 20 Blood Pressure 110/61 117/80 Pulse Oximetry 97 98 Intake & Output 07/13/18 07/14/18 07/14/18 18:59 06:59 18:59 Intake Total 1580 / 1580 300 / 300 Balance 1580 / 1580 300 / 300 Weight 77 kg Intake: IV 1100 / 1100 300 / 300 NS Inj 1,000 ML @ 100 mls/hr IV 800 / 800 .CONT .Q10H JORGE Rx#:[id number] Cipro 400 MG/200 ML Inj 400 mg 200 / 200 200 / 200 In 200 ml @ 200 mls/hr IV.SIG Q12H JORGE Rx#:[id number] Flagyl 500 MG Inj 100 ML @ 100 100 / 100 100 / 100 mls/hr IV.SIG Q8H JORGE Rx#: [id number] Oral 480 / 480 0 / 0 Other: # Voids 2 4 Date of Last Bowel Movement 07/13/18 07/13/18 07/14/18 # Bowel Movements 1 - Constitutional no acute distress - Routine HEENT Exam Head: Present: normocephalic, atraumatic Eye: Present: EOMI, PERRL ENT: Present: mucous membranes moist - Routine Neck Exam Present: supple, full ROM - Routine Respiratory Exam Present: CTA bilaterally - Routine Cardiovascular Exam Present: RRR, S1, S2 - Routine Abdominal Exam Present: soft, normoactive bowel sounds Comments: patient has mild diffuse tenderness - Routine Extremities Exam Present: normal capillary refill Results - Labs CBC & Chem 7: 07/14/18 03:04 07/14/18 03:04 Laboratory Results - last 24 hr 07/12/18 07/13/18 07/13/18 17:58 12:57 23:26 WBC 7.4 RBC 3.97 L Hgb 13.3 D 12.2 Hct 39.4 36.8 MCV 92.8 MCH 30.8 MCHC 33.2 RDW 14.5 Plt Count 156 D MPV 9.0 Neut % (Auto) 81.5 H Lymph % (Auto) 13.2 [place] % (Auto) 4.8 Eos % (Auto) 0.2 Baso % (Auto) 0.3 Neut # (Auto) 6.0 Lymph # (Auto) 1.0 [place] # (Auto) 0.4 Eos # (Auto) 0.0 Baso # (Auto) 0.0 WBC Differential . Differential Comment Auto diff final Sodium Potassium Chloride Carbon Dioxide Anion Gap BUN Creatinine Estimated GFR Random Glucose Calcium Urine Color Yellow Urine Clarity Clear Urine pH 5.5 Ur Specific [place] Greater/equal 1.030 Urine Protein Trace Urine Glucose (UA) Negative Urine Ketones Trace H Urine Occult Blood Trace Urine Nitrate Positive H Urine Bilirubin Negative Urine Urobilinogen 0.2 Ur Leukocyte Esterase Negative Urine WBC 0-5 Ur Squamous Epith Cells 6-10 H Urine Bacteria Many H Micro UA Comment Culture indicated Urine Culture Comments Culture indicated 07/14/18 07/14/18 03:04 03:04 WBC RBC Hgb 12.5 Hct 37.2 MCV MCH MCHC RDW Plt Count MPV Neut % (Auto) Lymph % (Auto) [place] % (Auto) Eos % (Auto) Baso % (Auto) Neut # (Auto) Lymph # (Auto) [place] # (Auto) Eos # (Auto) Baso # (Auto) WBC Differential Differential Comment Sodium 139 Potassium 3.5 Chloride 110 H Carbon Dioxide 19.1 L Anion Gap 10 BUN 4 L Creatinine 0.56 Estimated GFR Greater than 89 Random Glucose 81 Calcium 7.5 L D Urine Color Urine Clarity Urine pH Ur Specific [place] Urine Protein Urine Glucose (UA) Urine Ketones Urine Occult Blood Urine Nitrate Urine Bilirubin Urine Urobilinogen Ur Leukocyte Esterase Urine WBC Ur Squamous Epith Cells Urine Bacteria Micro UA Comment Urine Culture Comments Microbiology 07/12/18 19:50 Blood - Peripheral Aerobic Blood Culture - Preliminary No growth in 2 days 07/12/18 19:50 Blood - Peripheral Anaerobic Blood Culture - Preliminary gram positive cocci 07/12/18 19:56 Blood - Peripheral Aerobic Blood Culture - Preliminary No growth in 2 days 07/12/18 19:56 Blood - Peripheral Anaerobic Blood Culture - Preliminary No growth in 2 days 07/12/18 17:58 Clean Catch Urine Urine Culture - Final Escherichia coli Assessment and Plan - Plan Patient was seen and examined, upper endoscopy was done and colonoscopy with biopsies Findings; Terminal ileum : Normal Colon: Severe thickened ulcerated folds in the descending colon consistent with ischemic colitis biopsy was done, the remaining of the colon is normal Rectum: Normal Esophagus: Normal Stomach: Moderate gastritis biopsy was done from the antrum Duodenum: Normal I talked to the radiologist Dr. Guadarrama he reviewed the CT scan, he stated that the vessels are wide open no compromised mesenteric vessels, he suggested that this could be small vessel disease causing the ischemia could be in combination of constipation and straining Recommendations; 1- Supportive care 2- ok to transfer to recovery area then discharge per protocol 3-clear liquid diet 4-Hemoccult on a yearly basis by primary care physician 5-colonoscopy 2 month 6- EGD as needed 7-Protonix 40 mg daily 8-avoid straining and constipation
--- NOTE | 2018-07-14 14:36 | P.PNGS ---
<Zully Reveles - Last Filed: 07/14/18 14:33> Subjective Interval history: Resting in bed Wants to go outside to smoke Wants to eat Physical Exam Vital signs: Vital Signs 07/13/18 16:00 07/13/18 16:12 07/13/18 20:00 Temperature 98.7 F 100.4 F H Pulse Rate 89 88 Respiratory Rate 16 18 20 Blood Pressure 98/60 L 108/66 Pulse Oximetry 98 97 07/13/18 23:30 07/14/18 00:00 07/14/18 04:00 Temperature 99.1 F 98.8 F Pulse Rate 91 H 79 Respiratory Rate 15 20 20 Blood Pressure 102/54 L 107/57 L Pulse Oximetry 96 99 07/14/18 05:30 07/14/18 07:49 07/14/18 07:52 Temperature 98.2 F Pulse Rate 80 Respiratory Rate 15 18 18 Blood Pressure 110/61 Pulse Oximetry 97 07/14/18 11:00 07/14/18 11:44 07/14/18 12:00 Temperature 98.4 F 98.4 F Pulse Rate 88 77 Respiratory Rate 20 18 17 Blood Pressure 117/80 123/75 Pulse Oximetry 98 98 Intake & Output 07/13/18 07/14/18 07/14/18 18:59 06:59 18:59 Intake Total 1580 / 1580 400 / 400 400 / 400 Balance 1580 / 1580 400 / 400 400 / 400 Weight 77 kg Intake: IV 1100 / 1100 400 / 400 NS Inj 1,000 ML @ 100 mls/hr IV 800 / 800 .CONT .Q10H JORGE Rx#:[id number] Cipro 400 MG/200 ML Inj 400 mg 200 / 200 200 / 200 In 200 ml @ 200 mls/hr IV.SIG Q12H JORGE Rx#:[id number] Flagyl 500 MG Inj 100 ML @ 100 100 / 100 200 / 200 mls/hr IV.SIG Q8H JORGE Rx#: [id number] Oral 480 / 480 0 / 0 Anesthesia Amount 400 / 400 Other: # Voids 2 4 Date of Last Bowel Movement 07/13/18 07/13/18 07/14/18 # Bowel Movements 1 Narrative: Alert and awake Cardio: RRR Resp: CTAB Abd: soft; mild low RIGHT pelvic pain Assessment and Plan - Assessment (1) Abdominal pain Code(s): R10.9 - Unspecified abdominal pain Status: Acute Onset Date: ~07/12 Plan: 38-year-old female with abdominal pain with associated nausea and vomiting -s/p EGD/Colonoscopy -Diet per GI -Urine culture pending -No surgical plans -GS clear for DC if able to tolerate a diet -No follow up needed (2) Rectal bleeding Code(s): K62.5 - Hemorrhage of anus and rectum Status: Acute (3) GI bleed Code(s): K92.2 - Gastrointestinal hemorrhage, unspecified Status: Acute Onset Date: ~07/13/18 <Patrick oJ - Last Filed: 07/14/18 18:40> Subjective Interval history: DAILY PROGRESS NOTE FOR SURGICAL ATTENDING, DR. PATRICK JO Physical Exam Vital signs: Vital Signs 07/13/18 20:00 07/13/18 23:30 07/14/18 00:00 Temperature 100.4 F H 99.1 F Pulse Rate 88 91 H Respiratory Rate 20 15 20 Blood Pressure 108/66 102/54 L Pulse Oximetry 97 96 07/14/18 04:00 07/14/18 05:30 07/14/18 07:49 Temperature 98.8 F 98.2 F Pulse Rate 79 80 Respiratory Rate 20 15 18 Blood Pressure 107/57 L 110/61 Pulse Oximetry 99 97 07/14/18 07:52 07/14/18 11:00 07/14/18 11:44 Temperature 98.4 F Pulse Rate 88 Respiratory Rate 18 20 18 Blood Pressure 117/80 Pulse Oximetry 98 07/14/18 12:00 07/14/18 14:51 07/14/18 16:00 Temperature 98.4 F 98.4 F Pulse Rate 77 86 Respiratory Rate 17 18 18 Blood Pressure 123/75 117/69 Pulse Oximetry 98 98 07/14/18 17:51 Temperature Pulse Rate Respiratory Rate 18 Blood Pressure Pulse Oximetry Intake & Output 07/13/18 07/14/18 07/14/18 18:59 06:59 18:59 Intake Total 1580 / 1580 400 / 400 1560 / 1560 Balance 1580 / 1580 400 / 400 1560 / 1560 Weight 77 kg Intake: IV 1100 / 1100 400 / 400 200 / 200 NS Inj 1,000 ML @ 100 mls/hr IV 800 / 800 .CONT .Q10H JORGE Rx#:[id number] Cipro 400 MG/200 ML Inj 400 mg 200 / 200 200 / 200 200 / 200 In 200 ml @ 200 mls/hr IV.SIG Q12H JORGE Rx#:[id number] Flagyl 500 MG Inj 100 ML @ 100 100 / 100 200 / 200 mls/hr IV.SIG Q8H JORGE Rx#: [id number] Oral 480 / 480 0 / 0 960 / 960 Anesthesia Amount 400 / 400 Other: # Voids 2 4 5 Date of Last Bowel Movement 07/13/18 07/13/18 07/14/18 # Bowel Movements 1 - Additional findings Additional findings: Findings; Terminal ileum : Normal Colon: Severe thickened ulcerated folds in the descending colon consistent with ischemic colitis biopsy was done, the remaining of the colon is normal Rectum: Normal Esophagus: Normal Stomach: Moderate gastritis biopsy was done from the antrum Duodenum: Normal I talked to the radiologist Dr. Guadarrama he reviewed the CT scan, he stated that the vessels are wide open no compromised mesenteric vessels, he suggested that this could be small vessel disease causing the ischemia could be in combination of constipation and straining Recommendations; 1- Supportive care 2- ok to transfer to recovery area then discharge per protocol 3-clear liquid diet 4-Hemoccult on a yearly basis by primary care physician 5-colonoscopy 2 month 6- EGD as needed 7-Protonix 40 mg daily 8-avoid straining and constipation Assessment and Plan - Assessment (1) Abdominal pain Code(s): R10.9 - Unspecified abdominal pain Status: Acute Onset Date: ~07/12 (2) Rectal bleeding Code(s): K62.5 - Hemorrhage of anus and rectum Status: Acute (3) GI bleed Code(s): K92.2 - Gastrointestinal hemorrhage, unspecified Status: Acute Onset Date: ~07/13/18 - Attending Attestation NOTE FOR SURGICAL ATTENDING, DR. PATRICK JO I spoke with the multi share program coordinator Dr man Patient has ischemic colitis No surgical intervention at this time Advised patient she needs to stop smoking I agree with above assessment and plan. The exam, history, and the medical decision-making described in the above note were completed with the assistance of the mid-level provider. I reviewed and agree with the findings presented. I attest that I had a [id number] encounter with the patient on the same day, and personally performed and documented my assessment and findings in the medical record. The following services were provided during this hospital visit: Chart data review, vital sign assessments/reviewing monitor data Review of consultations notes if present. Medication orders/review and/or management Ordering and/or reviewing lab tests Ordering and/or interpreting/reviewing x-rays and/or diagnostic studies Care of the patient and discussion of the patient with the care team Documentation time To help prompt me to consider important information that might be impacting today's encounter and assessment, Information from prior notes written by myself or my colleagues may have been "brought forward/copy and pasted" into today's note. <Zully Reveles - Last Filed: 07/14/18 14:33> (1) Abdominal pain Qualifiers: Abdominal location: right lower quadrant Qualified Code(s): R10.31 - Right lower quadrant pain (3) GI bleed Qualifiers: GI bleed type/associated pathology: anorectal hemorrhage Qualified Code(s): K62.5 - Hemorrhage of anus and rectum <Patrick Jo - Last Filed: 07/14/18 18:40> (1) Abdominal pain Qualifiers: Abdominal location: right lower quadrant Qualified Code(s): R10.31 - Right lower quadrant pain (3) GI bleed Qualifiers: GI bleed type/associated pathology: anorectal hemorrhage Qualified Code(s): K62.5 - Hemorrhage of anus and rectum
[2018-07-15] MEDS: Morphine Inj 4 MG/ML Vial IV.PUSH PRN ×3 (02:36→08:48)
[2018-07-15 05:14] LABS: Baso % (Auto) 0.3 % (0.0-2.0); Eos # (Auto) 0.1 th/mm3 (0.0-0.4); Eos % (Auto) 2.1 % (0.0-4.0); Hematocrit 36.3 % (35.0-46.0); Hemoglobin 12.2 gm/dL (11.6-15.3); Lymph # (Auto) 1.4 th/mm3 (1.0-4.8); Lymph % (Auto) 19.9 % (9.0-44.0); Mean Corpuscular HGB Conc 33.6 % (32.0-36.0); Mean Corpuscular Hemoglobin 30.7 pg (27.0-34.0); Mean Corpuscular Volume 91.2 fL (80.0-100.0); Mean Platelet Volume 9.5 fL (7.0-11.0); Mono # (Auto) 0.6 th/mm3 (0.0-0.9); Neut # (Auto) 4.8 th/mm3 (1.8-7.7); Neut % (Auto) 68.7 % (16.0-70.0); Platelet Count 156 th/mm3 (150-450); Red Blood Count 3.98 mil/mm3 (4.00-5.30); Red Cell Distribution Width 14.6 % (11.6-17.2); White Blood Count 6.9 th/mm3 (4.0-11.0)
[2018-07-15 05:36] LABS: Anion Gap 8 meq/L (5-15); Blood Urea Nitrogen 2 mg/dL (7-18); Calcium 7.8 mg/dL (8.5-10.1); Carbon Dioxide 21.6 meq/L (21.0-32.0); Chloride 109 meq/L (98-107); Glomerular Filtration Rate Greater Than 89 mL/min (>89); Glucose,Random 87 mg/dL (74-106); Potassium 3.3 meq/L (3.5-5.1); Sodium 139 meq/L (136-145)
[2018-07-15] MEDS: Sod Chloride 0.9% Inj 1,000 ML IV.CONT SCH ×3 (05:50→17:08)
[2018-07-15] MEDS: Ciprofloxacin 400 MG/200 ML 400 MG/200 ML PIGGYBACK IV.SIG SCH (08:48)
--- NOTE | 2018-07-15 10:35 | P.PNIM ---
Subjective Interval history: f/u for ischemic colitis. patient has no complaints. She is in better spirit today. she stated she tolerated the clear liquid diet. denied any N/V or abdominal pain. patient very anxious to go home. she stated GI saw her around 6 and stated she will probably be clear by them tomorrow. remains afebrile. no events overnight. Physical Exam Vital signs: Vital Signs 07/14/18 11:00 07/14/18 11:44 07/14/18 12:00 Temperature 98.4 F 98.4 F Pulse Rate 88 77 Respiratory Rate 20 18 17 Blood Pressure 117/80 123/75 Pulse Oximetry 98 98 07/14/18 14:51 07/14/18 16:00 07/14/18 17:51 Temperature 98.4 F Pulse Rate 86 Respiratory Rate 18 18 18 Blood Pressure 117/69 Pulse Oximetry 98 07/14/18 20:00 07/15/18 00:00 07/15/18 00:30 Temperature 98.4 F 98.5 F Pulse Rate 84 70 Respiratory Rate 16 16 16 Blood Pressure 105/66 105/64 Pulse Oximetry 98 98 07/15/18 04:00 07/15/18 07:45 Temperature 98.2 F 98.2 F Pulse Rate 79 74 Respiratory Rate 16 18 Blood Pressure 101/58 L 105/68 Pulse Oximetry 96 97 Intake & Output 07/14/18 07/15/18 07/15/18 18:59 06:59 18:59 Intake Total 1660 / 1660 300 / 300 Balance 1660 / 1660 300 / 300 Weight 77 kg Intake: IV 300 / 300 300 / 300 Cipro 400 MG/200 ML Inj 400 mg 200 / 200 200 / 200 In 200 ml @ 200 mls/hr IV.SIG Q12H JORGE Rx#:[id number] Flagyl 500 MG Inj 100 ML @ 100 100 / 100 100 / 100 mls/hr IV.SIG Q8H JORGE Rx#: [id number] Oral 960 / 960 Anesthesia Amount 400 / 400 Other: # Voids 5 12 Date of Last Bowel Movement 07/14/18 07/14/18 07/14/18 # Bowel Movements 1 - Constitutional no acute distress - Routine HEENT Exam ENT: Present: mucous membranes moist - Routine Respiratory Exam Present: CTA bilaterally - Routine Cardiovascular Exam Present: RRR, S1, S2 Comments: no r/m/g. - Routine Abdominal Exam Present: soft, normoactive bowel sounds Comments: no TTP. no peritoneal signs. Results - Labs CBC & Chem 7: 07/15/18 04:19 07/15/18 04:19 Laboratory Results - last 24 hr 07/15/18 07/15/18 04:19 04:19 WBC 6.9 RBC 3.98 L Hgb 12.2 Hct 36.3 MCV 91.2 MCH 30.7 MCHC 33.6 RDW 14.6 Plt Count 156 MPV 9.5 Neut % (Auto) 68.7 Lymph % (Auto) 19.9 [place] % (Auto) 9.0 H Eos % (Auto) 2.1 Baso % (Auto) 0.3 Neut # (Auto) 4.8 Lymph # (Auto) 1.4 [place] # (Auto) 0.6 Eos # (Auto) 0.1 Baso # (Auto) 0.0 WBC Differential . Differential Comment Auto diff final Sodium 139 Potassium 3.3 L Chloride 109 H Carbon Dioxide 21.6 Anion Gap 8 BUN 2 L Creatinine 0.48 L Estimated GFR Greater than 89 Random Glucose 87 Calcium 7.8 L Microbiology 07/12/18 19:50 Blood - Peripheral Aerobic Blood Culture - Preliminary No growth in 2 days 07/12/18 19:50 Blood - Peripheral Anaerobic Blood Culture - Preliminary Staphylococcus epidermidis 07/12/18 19:56 Blood - Peripheral Aerobic Blood Culture - Preliminary No growth in 2 days 07/12/18 19:56 Blood - Peripheral Anaerobic Blood Culture - Preliminary No growth in 2 days 07/12/18 17:58 Clean Catch Urine Urine Culture - Final Escherichia coli Assessment and Plan - Assessment (1) Acute ischemic colitis Code(s): K55.039 - Acute (reversible) ischemia of large intestine, extent unspecified Status: Acute Plan: -found on colonoscopy on 07/15 showing severe thickened ulcerated folds in the descending colon consistent with ischemic colitis biopsy was done, the remaining of the colon is normal. -clinically continues to improved. on cipro and flagyl. -per GI Hemoccult on a yearly basis by primary care physician, colonoscopy 2 month, EGD as needed, Protonix 40 mg daily and avoid straining and constipation. -will switch medication to oral since patient tolerated oral intake. (2) UTI (urinary tract infection) Code(s): N39.0 - Urinary tract infection, site not specified Status: Acute Plan: urine cultures E coli pansensitive. asymptomatic but does have N/V and abdominal pain that improved. on cipro. (3) Tobacco abuse Code(s): Z72.0 - Tobacco use Status: Acute Plan: patient stated she cannot take any supplements. stated that she is withdrawal and needs to go home. education given on nicotine replacement and she continues to refuse. - Plan Discharge Planning: most likely can be d/c tomorrow waiting for GI clearance.
[2018-07-15] MEDS: oxyCODONE/Acetaminophen 10/325 Tablet PO PRN ×4 (11:25→22:29)
--- NOTE | 2018-07-15 12:35 | P.PNGI ---
Subjective Interval history: Patient is resting in the bed states she feels so much better today tolerating clear liquids without nausea or vomiting Patient is hungry requesting solid food. Abdominal pain gradual improvement, but still notes some mild lower abdominal discomfort. <TruongZaria M - Last Filed: 07/15/18 12:28> Physical Exam Vital signs: Vital Signs 07/14/18 14:51 07/14/18 16:00 07/14/18 17:51 Temperature 98.4 F Pulse Rate 86 Respiratory Rate 18 18 18 Blood Pressure 117/69 Pulse Oximetry 98 07/14/18 20:00 07/15/18 00:00 07/15/18 00:30 Temperature 98.4 F 98.5 F Pulse Rate 84 70 Respiratory Rate 16 16 Blood Pressure 105/66 105/64 Pulse Oximetry 98 98 07/15/18 04:00 07/15/18 07:45 07/15/18 11:33 Temperature 98.2 F 98.2 F 98 F Pulse Rate 79 74 76 Respiratory Rate 18 Blood Pressure 101/58 L 105/68 113/61 Pulse Oximetry 96 97 97 Intake & Output 07/14/18 07/15/18 07/15/18 18:59 06:59 18:59 Intake Total 1660 / 1660 300 / 300 Balance 1660 / 1660 300 / 300 Weight 77 kg Intake: IV 300 / 300 300 / 300 Cipro 400 MG/200 ML Inj 400 mg 200 / 200 200 / 200 In 200 ml @ 200 mls/hr IV.SIG Q12H JORGE Rx#:[id number] Flagyl 500 MG Inj 100 ML @ 100 100 / 100 100 / 100 mls/hr IV.SIG Q8H JORGE Rx#: [id number] Oral 960 / 960 Anesthesia Amount 400 / 400 Other: # Voids 5 12 Date of Last Bowel Movement 07/14/18 07/14/18 07/14/18 # Bowel Movements 1 - Constitutional no acute distress - Routine HEENT Exam Head: Present: normocephalic, atraumatic ENT: Present: mucous membranes moist - Routine Neck Exam Present: supple - Routine Respiratory Exam Present: accessory muscle use - Routine Cardiovascular Exam Present: S1 (Even unlabored), S2 - Routine Abdominal Exam Present: soft (Round, mild lower abdominal discomfort, noted with light palpation) - Routine Skin Exam Present: intact - Routine Neurological Exam Present: alert <Zaria Guerin - Last Filed: 07/15/18 12:28> Vital signs: Vital Signs 07/14/18 16:00 07/14/18 17:51 07/14/18 20:00 Temperature 98.4 F 98.4 F Pulse Rate 86 84 Respiratory Rate 18 18 16 Blood Pressure 117/69 105/66 Pulse Oximetry 98 98 07/15/18 00:00 07/15/18 00:30 07/15/18 04:00 Temperature 98.5 F 98.2 F Pulse Rate 70 79 Respiratory Rate 16 16 16 Blood Pressure 105/64 101/58 L Pulse Oximetry 98 96 07/15/18 07:45 07/15/18 08:50 07/15/18 11:33 Temperature 98.2 F 98 F Pulse Rate 74 76 Respiratory Rate 18 18 18 Blood Pressure 105/68 113/61 Pulse Oximetry 97 97 07/15/18 11:55 Temperature Pulse Rate Respiratory Rate 18 Blood Pressure Pulse Oximetry Intake & Output 07/14/18 07/15/18 07/15/18 18:59 06:59 18:59 Intake Total 1660 / 1660 300 / 300 Balance 1660 / 1660 300 / 300 Weight 77 kg Intake: IV 300 / 300 300 / 300 Cipro 400 MG/200 ML Inj 400 mg 200 / 200 200 / 200 In 200 ml @ 200 mls/hr IV.SIG Q12H JORGE Rx#:[id number] Flagyl 500 MG Inj 100 ML @ 100 100 / 100 100 / 100 mls/hr IV.SIG Q8H JORGE Rx#: [id number] Oral 960 / 960 Anesthesia Amount 400 / 400 Other: # Voids 5 12 Date of Last Bowel Movement 07/14/18 07/14/18 07/14/18 # Bowel Movements 1 <Zak Ko - Last Filed: 07/15/18 15:29> Results - Labs CBC & Chem 7: 07/15/18 04:19 07/15/18 04:19 Laboratory Results - last 24 hr 07/15/18 07/15/18 04:19 04:19 WBC 6.9 RBC 3.98 L Hgb 12.2 Hct 36.3 MCV 91.2 MCH 30.7 MCHC 33.6 RDW 14.6 Plt Count 156 MPV 9.5 Neut % (Auto) 68.7 Lymph % (Auto) 19.9 [place] % (Auto) 9.0 H Eos % (Auto) 2.1 Baso % (Auto) 0.3 Neut # (Auto) 4.8 Lymph # (Auto) 1.4 [place] # (Auto) 0.6 Eos # (Auto) 0.1 Baso # (Auto) 0.0 WBC Differential . Differential Comment Auto diff final Sodium 139 Potassium 3.3 L Chloride 109 H Carbon Dioxide 21.6 Anion Gap 8 BUN 2 L Creatinine 0.48 L Estimated GFR Greater than 89 Random Glucose 87 Calcium 7.8 L Microbiology 07/12/18 19:50 Blood - Peripheral Aerobic Blood Culture - Preliminary No growth in 3 days 07/12/18 19:50 Blood - Peripheral Anaerobic Blood Culture - Preliminary Staphylococcus epidermidis 07/12/18 19:56 Blood - Peripheral Aerobic Blood Culture - Preliminary No growth in 3 days 07/12/18 19:56 Blood - Peripheral Anaerobic Blood Culture - Preliminary No growth in 3 days 07/12/18 17:58 Clean Catch Urine Urine Culture - Final Escherichia coli <Zaria Guerin - Last Filed: 07/15/18 12:28> - Labs CBC & Chem 7: 07/15/18 04:19 07/15/18 04:19 Laboratory Results - last 24 hr 07/15/18 07/15/18 04:19 04:19 WBC 6.9 RBC 3.98 L Hgb 12.2 Hct 36.3 MCV 91.2 MCH 30.7 MCHC 33.6 RDW 14.6 Plt Count 156 MPV 9.5 Neut % (Auto) 68.7 Lymph % (Auto) 19.9 [place] % (Auto) 9.0 H Eos % (Auto) 2.1 Baso % (Auto) 0.3 Neut # (Auto) 4.8 Lymph # (Auto) 1.4 Rains # (Auto) 0.6 Eos # (Auto) 0.1 Baso # (Auto) 0.0 WBC Differential . Differential Comment Auto diff final Sodium 139 Potassium 3.3 L Chloride 109 H Carbon Dioxide 21.6 Anion Gap 8 BUN 2 L Creatinine 0.48 L Estimated GFR Greater than 89 Random Glucose 87 Calcium 7.8 L Microbiology 07/12/18 19:50 Blood - Peripheral Aerobic Blood Culture - Preliminary No growth in 3 days 07/12/18 19:50 Blood - Peripheral Anaerobic Blood Culture - Preliminary Staphylococcus epidermidis 07/12/18 19:56 Blood - Peripheral Aerobic Blood Culture - Preliminary No growth in 3 days 07/12/18 19:56 Blood - Peripheral Anaerobic Blood Culture - Preliminary No growth in 3 days <Zak Ko - Last Filed: 07/15/18 15:29> Assessment and Plan - Plan Patient is status post EGD and colonoscopy on 07/14/2018. Findings include normal terminal ileum. Severe thickened ulcerated folds in the descending colon consistent with ischemic colitis. Biopsies pending. Rectum normal EGD showed normal esophagus with moderate gastritis, duodenal Normal. 07/15/2018, patient still has some lower abdominal discomfort worsened with light palpation but much better. Patient is hungry and requesting food. Tolerating clear liquids without any distress. Plan for full liquid diet for lunch and transition to solid food as patient tolerates. Patient needs to continue current treatment regimen of Cipro and Flagyl. We will continue to monitor any GI symptoms of rectal bleeding or dyspepsia currently stable. Plan Diet to full liquids and can transition to regular diet if tolerating full liquids Continue Cipro and Flagyl Anti-emetics as needed Bowel regimen as needed Biopsies pending, EGD colonoscopy Plan for colonoscopy in 2 months discussed with patient EGD as needed, as needed Supportive care Monitor lab Patient was seen per myself and Dr. Ko, note was written on his behalf <Zaria Guerin - Last Filed: 07/15/18 12:28> - Plan Patient was seen and examined, agree with above note, feeling better, patient wants to go home we will advance diet as tolerated if she tolerated well she can go home she will need colonoscopy as an outpatient, patient was instructed to avoid smoking completely avoid straining and constipation <Zak Ko - Last Filed: 07/15/18 15:29>
[2018-07-15] MEDS: metroNIDAZOLE 500 MG Tablet PO SCH ×2 (13:41→22:29)
--- NOTE | 2018-07-15 15:17 | P.PNGS ---
Subjective Patient reports: no new complaints ( DAILY PROGRESS NOTE FOR SURGICAL ATTENDING, DR. PATRICK SANCHES Wants more to eatWondering when she is going home) Physical Exam Vital signs: Vital Signs 07/14/18 16:00 07/14/18 17:51 07/14/18 20:00 Temperature 98.4 F 98.4 F Pulse Rate 86 84 Respiratory Rate 18 18 16 Blood Pressure 117/69 105/66 Pulse Oximetry 98 98 07/15/18 00:00 07/15/18 00:30 07/15/18 04:00 Temperature 98.5 F 98.2 F Pulse Rate 70 79 Respiratory Rate 16 16 16 Blood Pressure 105/64 101/58 L Pulse Oximetry 98 96 07/15/18 07:45 07/15/18 08:50 07/15/18 11:33 Temperature 98.2 F 98 F Pulse Rate 74 76 Respiratory Rate 18 18 18 Blood Pressure 105/68 113/61 Pulse Oximetry 97 97 07/15/18 11:55 Temperature Pulse Rate Respiratory Rate 18 Blood Pressure Pulse Oximetry Intake & Output 07/14/18 07/15/18 07/15/18 18:59 06:59 18:59 Intake Total 1660 / 1660 300 / 300 Balance 1660 / 1660 300 / 300 Weight 77 kg Intake: IV 300 / 300 300 / 300 Cipro 400 MG/200 ML Inj 400 mg 200 / 200 200 / 200 In 200 ml @ 200 mls/hr IV.SIG Q12H JORGE Rx#:[id number] Flagyl 500 MG Inj 100 ML @ 100 100 / 100 100 / 100 mls/hr IV.SIG Q8H JORGE Rx#: [id number] Oral 960 / 960 Anesthesia Amount 400 / 400 Other: # Voids 5 12 Date of Last Bowel Movement 07/14/18 07/14/18 07/14/18 # Bowel Movements 1 Narrative: Alert and awake Cardio: RRR Resp: CTAB Abd: soft; mild low RIGHT pelvic pain Assessment and Plan - Assessment (1) Rectal bleeding Code(s): K62.5 - Hemorrhage of anus and rectum Status: Acute - Plan Colonic ischemia seen by endoscopy At this time diet per GI Advised patient to stop smoking No surgical intervention Please call if necessary - Attending Attestation NOTE FOR SURGICAL ATTENDING, DR. PATRICK SANCHES I agree with above assessment and plan. The exam, history, and the medical decision-making described in the above note were completed with the assistance of the mid-level provider. I reviewed and agree with the findings presented. I attest that I had a [id number] encounter with the patient on the same day, and personally performed and documented my assessment and findings in the medical record. The following services were provided during this hospital visit: Chart data review, vital sign assessments/reviewing monitor data Review of consultations notes if present. Medication orders/review and/or management Ordering and/or reviewing lab tests Ordering and/or interpreting/reviewing x-rays and/or diagnostic studies Care of the patient and discussion of the patient with the care team Documentation time To help prompt me to consider important information that might be impacting today's encounter and assessment, Information from prior notes written by myself or my colleagues may have been "brought forward/copy and pasted" into today's note.
[2018-07-15] MEDS: Ciprofloxacin 500 MG Tablet PO SCH (20:03)
[2018-07-16] MEDS: oxyCODONE/Acetaminophen 10/325 Tablet PO PRN ×3 (04:56→13:07)
[2018-07-16] MEDS: metroNIDAZOLE 500 MG Tablet PO SCH ×2 (04:59→13:06)
[2018-07-16] MEDS: Sod Chloride 0.9% Inj 1,000 ML IV.CONT SCH (07:00)
[2018-07-16 08:07] LABS: Baso % (Auto) 0.6 % (0.0-2.0); Eos # (Auto) 0.2 th/mm3 (0.0-0.4); Eos % (Auto) 2.6 % (0.0-4.0); Hematocrit 36.1 % (35.0-46.0); Lymph # (Auto) 1.7 th/mm3 (1.0-4.8); Lymph % (Auto) 25.5 % (9.0-44.0); Mean Corpuscular HGB Conc 33.3 % (32.0-36.0); Mean Corpuscular Hemoglobin 30.9 pg (27.0-34.0); Mean Corpuscular Volume 92.7 fL (80.0-100.0); Mean Platelet Volume 9.6 fL (7.0-11.0); Mono # (Auto) 0.9 th/mm3 (0.0-0.9); Mono % (Auto) 12.7 % (0.0-8.0); Neut # (Auto) 3.9 th/mm3 (1.8-7.7); Neut % (Auto) 58.6 % (16.0-70.0); Platelet Count 188 th/mm3 (150-450); Red Blood Count 3.89 mil/mm3 (4.00-5.30); Red Cell Distribution Width 14.3 % (11.6-17.2); White Blood Count 6.7 th/mm3 (4.0-11.0)
[2018-07-16 08:28] LABS: Anion Gap 9 meq/L (5-15); Blood Urea Nitrogen 5 mg/dL (7-18); Calcium 7.9 mg/dL (8.5-10.1); Carbon Dioxide 22.5 meq/L (21.0-32.0); Chloride 111 meq/L (98-107); Glomerular Filtration Rate Greater Than 89 mL/min (>89); Glucose,Random 92 mg/dL (74-106); Potassium 3.8 meq/L (3.5-5.1); Sodium 142 meq/L (136-145)
[2018-07-16] MEDS: Ciprofloxacin 500 MG Tablet PO SCH (08:42)
[2018-07-16 10:05] VITALS: RESP 16; TEMP 97.8; O2SAT 98
[2018-07-16 12:37] VITALS: BP 92/56; PULSE 63
--- NOTE | 2018-07-16 12:54 | P.PNIM ---
Physical Exam Vital signs: Vital Signs 07/15/18 15:25 07/15/18 16:00 07/15/18 20:00 Temperature 97.9 F 97.7 F Pulse Rate 74 76 Respiratory Rate 18 16 18 Blood Pressure 106/73 114/55 L Pulse Oximetry 97 98 07/16/18 00:00 07/16/18 04:00 07/16/18 08:00 Temperature 97.4 F L 98.4 F 97.8 F Pulse Rate 81 83 74 Respiratory Rate 17 17 16 Blood Pressure 113/56 L 93/59 L 111/57 L Pulse Oximetry 99 97 98 07/16/18 12:00 Temperature 97.8 F Pulse Rate 63 Respiratory Rate 16 Blood Pressure 92/56 L Pulse Oximetry 98 Intake & Output 07/15/18 07/16/18 07/16/18 18:59 06:59 18:59 Intake Total 1200 / 1200 Balance 1200 / 1200 Weight 77 kg Intake: Oral 1200 / 1200 Other: # Voids 5 5 3 Date of Last Bowel Movement 07/14/18 07/15/18 # Bowel Movements 1 2 Results - Labs CBC & Chem 7: 07/16/18 07:14 07/16/18 07:14 Laboratory Results - last 24 hr 07/16/18 07/16/18 07:14 07:14 WBC 6.7 RBC 3.89 L Hgb 12.0 Hct 36.1 MCV 92.7 MCH 30.9 MCHC 33.3 RDW 14.3 Plt Count 188 MPV 9.6 Neut % (Auto) 58.6 Lymph % (Auto) 25.5 Carbon % (Auto) 12.7 H Eos % (Auto) 2.6 Baso % (Auto) 0.6 Neut # (Auto) 3.9 Lymph # (Auto) 1.7 Carbon # (Auto) 0.9 Eos # (Auto) 0.2 Baso # (Auto) 0.0 WBC Differential . Differential Comment Auto diff final Sodium 142 Potassium 3.8 Chloride 111 H Carbon Dioxide 22.5 Anion Gap 9 BUN 5 L Creatinine 0.57 Estimated GFR Greater than 89 Random Glucose 92 Calcium 7.9 L Microbiology 07/12/18 19:50 Blood - Peripheral Aerobic Blood Culture - Preliminary No growth in 4 days 07/12/18 19:50 Blood - Peripheral Anaerobic Blood Culture - Final Staphylococcus epidermidis 07/12/18 19:56 Blood - Peripheral Aerobic Blood Culture - Preliminary No growth in 4 days 07/12/18 19:56 Blood - Peripheral Anaerobic Blood Culture - Preliminary No growth in 4 days Assessment and Plan - Assessment (1) Acute ischemic colitis Code(s): K55.039 - Acute (reversible) ischemia of large intestine, extent unspecified Status: Acute Plan: -found on colonoscopy on 07/15 showing severe thickened ulcerated folds in the descending colon consistent with ischemic colitis biopsy was done, the remaining of the colon is normal. -clinically continues to improved. on cipro and flagyl. -per GI Hemoccult on a yearly basis by primary care physician, colonoscopy 2 month, EGD as needed, Protonix 40 mg daily and avoid straining and constipation. -will switch medication to oral since patient tolerated oral intake. (2) UTI (urinary tract infection) Code(s): N39.0 - Urinary tract infection, site not specified Status: Acute Plan: urine cultures E coli pansensitive. asymptomatic but does have N/V and abdominal pain that improved. on cipro. (3) Tobacco abuse Code(s): Z72.0 - Tobacco use Status: Acute Plan: patient stated she cannot take any supplements. stated that she is withdrawal and needs to go home. education given on nicotine replacement and she continues to refuse. - Plan Assessment (1) Acute ischemic colitis Code(s): K55.039 - Acute (reversible) ischemia of large intestine, extent unspecified Status: Acute Plan: -found on colonoscopy on 07/15 showing severe thickened ulcerated folds in the descending colon consistent with ischemic colitis biopsy was done, the remaining of the colon is normal. -clinically continues to improved. on cipro and flagyl. -per GI Hemoccult on a yearly basis by primary care physician, colonoscopy 2 month, EGD as needed, Protonix 40 mg daily and avoid straining and constipation. -will switch medication to oral since patient tolerated oral intake. (2) UTI (urinary tract infection) Code(s): N39.0 - Urinary tract infection, site not specified Status: Acute Plan: urine cultures E coli pansensitive. asymptomatic but does have N/V and abdominal pain that improved. on cipro. (3) Tobacco abuse Code(s): Z72.0 - Tobacco use Status: Acute Plan: patient stated she cannot take any supplements. stated that she is withdrawal and needs to go home. education given on nicotine replacement and she continues to refuse. - Plan Discharge Planning: most likely can be d/c tomorrow waiting for GI clearance.
--- NOTE | 2018-07-16 13:29 | P.DS ---
Date of admission: 07/12/18 19:36 Primary care physician: Fernando Campbell MD Brief History from admission: This is a 38 y/o F with hx of multiple musculoskeletal surgeries and hysterectomy who p/w abdominal pain and N/V. Patient stated at 8 am yesterday she had right lower quadrant pain. At 5 pm she had nausea and vomiting. Denies any fevers or chills. She says she went to [facility] and was transferred here for surgical consultation. Patient stated that this morning around 5 AM she had blood coming from her rectum. Blood described as red to maroon color. Patient stated that she had a half a cup. Per patient's nurse she had tinge of blood but mostly stool were mucousy. Patient had a colonoscopy per patient "a very long time ago." She stated that it was normal and she was unsure why she had colonoscopy done. Patient denies any family history of colon cancer. Patient stated that the morphine only last for 3 hours and asking to increase frequency. At home she takes Percocet about every 6-8 hours for her chronic pain. She has no other complaints. DS: Diagnosis - Discharge Diagnosis (1) Acute ischemic colitis Status: Acute (2) UTI (urinary tract infection) Status: Acute (3) Tobacco abuse Status: Acute DS: Medications - Discharge Medications Prescriptions: ciprofloxacin HCl 500 mg PO Q12HR #14 tab metronidazole 500 mg PO Q8HR #21 tab DS: Summary Hospital Course: This is a 38 y/o F with hx of multiple musculoskeletal surgeries and hysterectomy who p/w abdominal pain and N/V. Patient was thought to have acute ischemic colitis, started empirically on ciprofloxacin and Flagyl. Gastroenterology was consulted, colonoscopy was done 07/15/2018 which showed severely thickened ulcerated folds and a decreasing colon consistent with ischemic colitis. She was continued on the antibiotics. Upon improvement, antibiotics were switched to oral medications. She was also treated for pansensitive urinary tract infection with E. coli. After a few days, patient continued to tolerate diet, abdominal pain has resolved. She will be discharged to finish 1 more week of ciprofloxacin and Flagyl. - Time Spent with Patient Total time spent providing and/or coordinating discharge services: Greater than 30 minutes - Quality: VTE Deep Vein Thrombosis/Pulmonary Embolism Present on Admission: No Exam Vital signs: Vital Signs 07/15/18 15:25 07/15/18 16:00 07/15/18 20:00 Temperature 97.9 F 97.7 F Pulse Rate 74 76 Respiratory Rate 18 16 18 Blood Pressure 106/73 114/55 L Pulse Oximetry 97 98 07/16/18 00:00 07/16/18 04:00 07/16/18 08:00 Temperature 97.4 F L 98.4 F 97.8 F Pulse Rate 81 83 74 Respiratory Rate 17 17 16 Blood Pressure 113/56 L 93/59 L 111/57 L Pulse Oximetry 99 97 98 07/16/18 12:00 Temperature 97.8 F Pulse Rate 63 Respiratory Rate 16 Blood Pressure 92/56 L Pulse Oximetry 98 Intake & Output 07/15/18 07/16/18 07/16/18 18:59 06:59 18:59 Intake Total 1200 / 1200 Balance 1200 / 1200 Weight 77 kg Intake: Oral 1200 / 1200 Other: # Voids 5 5 3 Date of Last Bowel Movement 07/14/18 07/15/18 # Bowel Movements 1 2 Narrative: S> Pain very mild in the abdomen, no nausea or vomiting. Tolerated dinner, breakfast and lunch. No diarrhea, no hematochezia or melena O> Not in distress, well-nourished, looks stated age PERR Normal rate and regular rhythm, no murmurs gallops or rubs appreciated. Clear to auscultation and symmetric bilaterally, normal respiratory effort. Normal bowel sounds, soft, non-tender, nondistended, no guarding. No edema. No rash of generalized distribution. Skin is warm and dry. AAO x3, no cranial nerve deficits, moves all 4 extremities, no focal neurologic deficits Normal mood, appropriate affect Results Procedures completed during hospitalization: Colonoscopy 07/15/2018 Pending studies at discharge: Pending at discharge 07/14/18 08:16 Surgical [PTH] Routine Labs on day of discharge: Labs from last 24 hours 07/16/18 07/16/18 07:14 07:14 WBC 6.7 RBC 3.89 L Hgb 12.0 Hct 36.1 MCV 92.7 MCH 30.9 MCHC 33.3 RDW 14.3 Plt Count 188 MPV 9.6 Neut % (Auto) 58.6 Lymph % (Auto) 25.5 [place] % (Auto) 12.7 H Eos % (Auto) 2.6 Baso % (Auto) 0.6 Neut # (Auto) 3.9 Lymph # (Auto) 1.7 [place] # (Auto) 0.9 Eos # (Auto) 0.2 Baso # (Auto) 0.0 WBC Differential . Differential Comment Auto diff final Sodium 142 Potassium 3.8 Chloride 111 H Carbon Dioxide 22.5 Anion Gap 9 BUN 5 L Creatinine 0.57 Estimated GFR Greater than 89 Random Glucose 92 Calcium 7.9 L Preliminary micro results at discharge 07/12/18 19:50 Aerobic Blood Culture - Preliminary Blood - Peripheral No growth in 4 days 07/12/18 19:56 Aerobic Blood Culture - Preliminary Blood - Peripheral No growth in 4 days Anaerobic Blood Culture - Preliminary No growth in 4 days - Impressions ITS Impressions Abdomen/Pelvis CT 07/12/18 17:36 CONCLUSION: 1. Unremarkable bowel gas pattern. 2. Status post cholecystectomy. 3. Stable low-density cystic lesion in the dome of the right lobe of the liver. Discharge Plan - Discharge Disposition Patient Disposition: 01 Discharge Home - Discharge Condition Condition: Stable - Discharge Order Discharge Orders: Discharge Order (Routine); Ordered 07/16/18 Ordered By: Kaelyn Mullins - Discharge Details Anticipated Discharge Date: 07/16/18 - Physicians Team Primary Care Provider: Fernando Campbell Attending Provider: Kaelyn Mullins Other Providers: Vern Jo MD ; [facility] ; Zak Ko MD ; [place]
--- NOTE | 2018-07-16 16:30 | P.PNGI ---
Subjective Interval history: Patient is resting in the bed tolerating food without any nausea vomiting and ready to discharge Denies any acute abdominal pain Physical Exam Vital signs: Vital Signs 07/15/18 20:00 07/16/18 00:00 07/16/18 04:00 Temperature 97.7 F 97.4 F L 98.4 F Pulse Rate 76 81 83 Respiratory Rate 18 17 17 Blood Pressure 114/55 L 113/56 L 93/59 L Pulse Oximetry 98 99 97 07/16/18 08:00 07/16/18 12:00 Temperature 97.8 F 97.8 F Pulse Rate 74 63 Respiratory Rate 16 16 Blood Pressure 111/57 L 92/56 L Pulse Oximetry 98 98 Intake & Output 07/15/18 07/16/18 07/16/18 18:59 06:59 18:59 Intake Total 1200 / 1200 Balance 1200 / 1200 Weight 77 kg Intake: Oral 1200 / 1200 Other: # Voids 5 5 3 Date of Last Bowel Movement 07/14/18 07/15/18 07/16/18 # Bowel Movements 1 2 - Constitutional no acute distress - Routine HEENT Exam Head: Present: normocephalic ENT: Present: mucous membranes moist - Routine Abdominal Exam Present: soft, normoactive bowel sounds Results - Labs CBC & Chem 7: 07/16/18 07:14 07/16/18 07:14 Laboratory Results - last 24 hr 07/16/18 07/16/18 07:14 07:14 WBC 6.7 RBC 3.89 L Hgb 12.0 Hct 36.1 MCV 92.7 MCH 30.9 MCHC 33.3 RDW 14.3 Plt Count 188 MPV 9.6 Neut % (Auto) 58.6 Lymph % (Auto) 25.5 [place] % (Auto) 12.7 H Eos % (Auto) 2.6 Baso % (Auto) 0.6 Neut # (Auto) 3.9 Lymph # (Auto) 1.7 [place] # (Auto) 0.9 Eos # (Auto) 0.2 Baso # (Auto) 0.0 WBC Differential . Differential Comment Auto diff final Sodium 142 Potassium 3.8 Chloride 111 H Carbon Dioxide 22.5 Anion Gap 9 BUN 5 L Creatinine 0.57 Estimated GFR Greater than 89 Random Glucose 92 Calcium 7.9 L Microbiology 07/12/18 19:50 Blood - Peripheral Aerobic Blood Culture - Preliminary No growth in 4 days 07/12/18 19:50 Blood - Peripheral Anaerobic Blood Culture - Final Staphylococcus epidermidis 07/12/18 19:56 Blood - Peripheral Aerobic Blood Culture - Preliminary No growth in 4 days 07/12/18 19:56 Blood - Peripheral Anaerobic Blood Culture - Preliminary No growth in 4 days - Procedures Colonoscopy 07/15/2018 Assessment and Plan - Plan 07/16/2018 patient is resting in the bed and able to tolerate food without any acute nausea or vomiting. Patient initially was admitted on 814 for ischemic colitis Current labs show hemoglobin 12. No obvious bleeding. Discussed EGD colonoscopy with patient and encouraged no smoking and avoid any straining with defecation. Encourage patient to use bowel regimen and to monitor for BM at least every 2-3 days. Patient currently being maintained on p.o. Cipro and Flagyl. Patient is pending discharge and okay from a GI standpoint. Encourage patient to follow-up in the office for any further symptom management. Follow-up case discussed with Dr. Chavez, patient discharged today. Patient was seen per myself., Note was written on his behalf.
== END 2018-07-16 14:17 | disposition home or self-care (01) ==
LOC: PHED 17:23 → INTOOBSV 19:24 → PHEDA 19:24 → N06 07-13 00:43
PROVIDERS: ADMIT Hospitalist; ATTEND Hospitalist
PROC: COLONOS (2018-07-14 10:35)
DX: K55.039 Acute (reversible) ischemia of large intestine, extent unspecified; Z88.5 Allergy status to narcotic agent; K29.70 Gastritis, unspecified, without bleeding; Z87.442 Personal history of urinary calculi; Z82.49 Family history of ischemic heart disease and other diseases of the circulatory system; J39.8 Other specified diseases of upper respiratory tract; B96.20 Unspecified Escherichia coli [E. coli] as the cause of diseases classified elsewhere; J45.909 Unspecified asthma, uncomplicated; F17.210 Nicotine dependence, cigarettes, uncomplicated; Z90.710 Acquired absence of both cervix and uterus; N39.0 Urinary tract infection, site not specified; Z96.651 Presence of right artificial knee joint; K21.9 Gastro-esophageal reflux disease without esophagitis